=== PATIENT | male | born 1950 | race Caucasian/White ===

== ENCOUNTER 2020-01-02 10:54 | Outpatient (CLI) | payer MEDICARE, OTHER, SELFPAY ==
--- NOTE | ~2020-01-02 | XR_ITS ---
EXAMINATION: XR lg joint inject/asp w image DATE: 01/02/2020 11:40 INDICATION: Left hip arthritis. TECHNIQUE: A time-out was performed to verify the patient's name, date of , and procedure to b e performed. The procedure including the risks, benefits, and alternatives was discussed with the pat ient. Risks discussed included bleeding and infection. The patient understood the risks and agreed to proceed. The skin overlying the left hip joint was prepped and draped in usual sterile fashion. An esthetic was administered with 1% lidocaine subcutaneously. A 22 G needle was advanced under fluoros copic guidance into the joint. Injection of 1 mL of Omnipaque 240 confirmed intra-articular position of the needle. Subsequently, injectate consisting of 2 mL 0.5% bupivacaine and 1 mL 80 mg/mL Depo-M edrol was instilled. The needle was removed and the entry site was cleaned and dressed. There were no immediate complications. Fluoroscopy exposure time was 0.1 minutes. The total number of images was 2. FINDINGS: Real-time fluoroscopy demonstrates the needle in the left hip joint. Patient's pain prior t o procedure:5/10. Patient's pain following the procedure: 0/10. IMPRESSION: 1. Left hip joint injection of local anesthetic and steroid with decrease in the patient's presenting pain. Reviewed, dictated and finalized at location A. ME CHEMIST IMPRESSION: 1. Left hip joint injection of local anesthetic and steroid with decrease in th e patient's presenting pain.
== END 2020-01-02 10:55 | disposition home or self-care (01) ==
LOC: ANHIMG 11:06
PROVIDERS: Visit Provider Orthopaedic Surgery
DX: M16.12 Unilateral primary osteoarthritis, left hip (principal)
CPT/HCPCS: 20610; 77002; J1040; Q9966

== ENCOUNTER 2020-04-13 12:18 | Outpatient (CLI) | payer MEDICARE, OTHER, SELFPAY ==
--- NOTE | ~2020-04-13 | CT_ITS ---
EXAMINATION: CT lung screening EXAM DATE: 04/13/2020 12:36 INDICATION: Personal history of nicotine dependence. TECHNIQUE: Spiral low dose CT of the chest without contrast. Axial, coronal and sagittal images were reviewed. The dose-length product (DLP) for this examination was 116.10 mGy-cm. The exposure was t ailored according to patient size (auto mA exposure control), and iterative reconstruction (ASIR) was used as additional dose reduction technique. Comparison is made to prior examination from 04/10/2019. FINDINGS: The lungs are clear. Mild apical scarring. Mild emphysema and moderate hyperinflation. Tra cheobronchial tree is patent. There is no mediastinal, hilar or axillary lymphadenopathy. There a re no pleural or pericardial effusions. There is no pneumothorax. Heart normal in size. No evid ence of coronary arterial calcification. Upper abdomen is unremarkable. There is thoracic spondylos is without osteoblastic or osteolytic lesions identified. IMPRESSION: Lung-RADS category 1, negative (<1%chance of malignancy); recommend continued LDCT screen ing in 1 year. Reviewed, dictated and finalized at location A. IMPRESSION: Lung-RADS category 1, negative (<1%chance of malignancy); recommend continued LDCT screening in 1 year.
== END 2020-04-13 12:19 | disposition home or self-care (01) ==
LOC: CHSIMG 12:20
PROVIDERS: PCP Nurse Practitioner Family; Visit Provider Nurse Practitioner Family
DX: Z12.2 Encounter for screening for malignant neoplasm of respiratory organs (principal); Z87.891 Personal history of nicotine dependence
CPT/HCPCS: G0297

== ENCOUNTER 2020-11-09 11:37 | Outpatient (CLI) | payer MEDICARE, SELFPAY ==
[2020-11-09 11:50] LABS: Hematocrit 46.4 % (37.0-46.0); Hemoglobin 15.2 g/dL (12.4-15.3); Mean Corpuscular HGB Conc 32.8 g/dL (32.0-36.0); Mean Corpuscular Hemoglobin 31.7 pg (27.0-31.0); Mean Corpuscular Volume 96.7 fL (78.0-102.0); Mean Platelet Volume 10.5 fl (8.7-11.0); Platelet Count Result 233 K/mm3 (150-420); Red Cell Distribution Width 12.4 % (11.6-14.4); White Blood Count 5.6 K/mm3 (4.8-10.8)
[2020-11-09 13:03] LABS: Alanine Aminotransferase 19 U/L (16-63); Alkaline Phosphatase 103 U/L (46-116); Anion Gap 9 mmol/L (8-16); Aspartate Amino Transferase < 10 U/L (15-37); Bilirubin,Total 0.4 mg/dL (0.00-1.00); Blood Urea Nitrogen 19 mg/dL (7-18); Calcium 9.3 mg/dL (8.5-10.1); Carbon Dioxide 30 mmol/L (21-32); Chloride 102 mmol/L (98-108); Cholesterol 166 mg/dL (0-200); Estimated Glomerular Filt Rate > 60; Glucose 99 mg/dL (70-99); HDL Direct 53 mg/dL (40-60); LDL Cholesterol Calculated 101 mg/dL (<130); Osmolality Calculated 294 mOsm/kg (285-295); Potassium 4.4 mmol/L (3.5-5.1); Prostate Specific Antigen 4.8 ng/mL (< OR = 4.0); Sodium 141 mmol/L (136-145); Total Protein 7.4 g/dL (6.4-8.2); Triglycerides 59 mg/dL (0-150)
== END 2020-11-09 11:38 | disposition home or self-care (01) ==
LOC: CHSLAB 11:39
PROVIDERS: PCP Family Medicine; Visit Provider Nurse Practitioner Family
DX: Z13.6 Encounter for screening for cardiovascular disorders (principal); Z12.5 Encounter for screening for malignant neoplasm of prostate; I10 Essential (primary) hypertension
CPT/HCPCS: 36415; 80053; 80061; 84153; 85027; G0103

== ENCOUNTER 2021-07-13 07:43 | Outpatient (CLI) | payer MEDICARE, OTHER, SELFPAY ==
--- NOTE | ~2021-07-13 | CT_ITS ---
EXAMINATION: CT lung screening DATE: 07/13/2021 08:22 INDICATION: Personal history of tobacco dependence, prior smoker with 45 pack year history TECHNIQUE: Computed tomography (CT) of the chest was performed without intravenous contrast. The dose -length product (DLP) was 107.37 mGy-cm. 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 COMPARISON: 04/13/2020 FINDINGS: There is mild emphysema. No suspicious pulmonary nodules are identified. The lungs are free of acute opacities. There is no pleural effusion or pneumothorax. No pathologically enlarged thoraci c lymph nodes are identified. The heart size is normal. There is a 2 cm cyst of the left kidney. Ther e are compression fractures of T12 and L1 with slight interval worsening. IMPRESSION: 1. Lung-RADS category 1: Negative. Continue annual screening with noncontrast low-dose chest CT in 12 months. Reviewed, dictated and finalized at location B. IMPRESSION: 1. Lung-RADS category 1: Negative. Continue annual screening with noncontrast l ow-dose chest CT in 12 months.
== END 2021-07-13 07:44 | disposition home or self-care (01) ==
LOC: CHSIMG 07:45
PROVIDERS: PCP Family Medicine; Visit Provider Family Medicine
DX: Z12.2 Encounter for screening for malignant neoplasm of respiratory organs (principal); Z87.891 Personal history of nicotine dependence
CPT/HCPCS: 71271

== ENCOUNTER 2022-01-29 15:57 | Emergency (ER) | payer MEDICARE, OTHER, SELFPAY ==
--- NOTE | ~2022-01-29 | CT_ITS ---
EXAMINATION: CTA chest PE protocol EXAM DATE: 01/29/2022 18:16 INDICATION: Chest pain with SOB. TECHNIQUE: Spiral CTA of the chest (pulmonary arteries) was performed with 100 cc Omnipaque 350 intr avenous contrast injection. Images were acquired during the pulmonary arterial phase. Coronal maxi mum intensity projection 3D-reconstructions were created by the technologist on dedicated workstation . Axial, coronal and sagittal reformatted images were reviewed. The dose-length product (DLP) for t his examination was 456.44 mGy-cm. The exposure was tailored according to patient size (auto mA exp osure control), and iterative reconstruction (ASIR) was used as additional dose reduction technique. Comparison is made to prior examination from 07/07/2021. FINDINGS: Pulmonary arteries are well opacified and without intraluminal filling defects. No thora cic aortic dissection. The lungs are clear. There are no pleural or pericardial effusions. There is a small amount of opacity in the trachea probably debris. There is no mediastinal, hilar or axil devan lymphadenopathy. There is no pneumothorax. Heart normal in size. There is minimal coronary arterial calcification, arterial sclerosis. Upper abdomen is unremarkable. Minimal chronic compre ssion fractures of T2 and T12. IMPRESSION: No pulmonary emboli or acute cardiopulmonary findings. Reviewed, dictated and finalized at location G.
--- NOTE | ~2022-01-29 | XR_ITS ---
EXAMINATION: XR chest 1V portable EXAM DATE: 01/29/2022 16:23 INDICATION: Mid to left-sided chest pain. TECHNIQUE: Portable AP frontal chest x-ray was obtained. Comparison is made to prior examination from 05/05/2013. FINDINGS: The lungs are clear. There are no pleural effusions. The cardiomediastinal silhouette is within normal limits. There is no pneumothorax suspected. The bones and soft tissues are unremarkab le. IMPRESSION: Unremarkable chest x-ray exam. Reviewed, dictated and finalized at location G.
[2022-01-29 16:05] VITALS: BP 169/78; PULSE 60; RESP 20; TEMP 35.8; O2SAT 99
--- NOTE | 2022-01-29 16:07 | ED.DIZZY ---
HPI - Dizziness General Stated Complaint: chest heaviness Time Seen by Provider: 01/29/22 16:08 Related Data Home Medications Medication Instructions Recorded Confirmed No Home Medications 03/08/21 03/08/21 Allergies Allergy/AdvReac Type Severity Reaction Status Date / Time diclofenac Allergy Intermediate Hives Verified 12/28/21 07:39 Sulfonamides Allergy Intermediate Unknown Uncoded 03/08/21 08:05 PMFSH Past Medical History Medical History Centrilobular emphysema (07/23/18) Degenerative disc disease (07/17/18) Elevated blood pressure reading in office without diagnosis of hypertension High prostate specific antigen (PSA) (01/16/18) Need for 23-polyvalent pneumococcal polysaccharide vaccine Surgical History Surgical History Hx of tonsillectomy Normal colonoscopy 08/16/2018 Family History Family History Mother Family history of type 2 diabetes mellitus Social History Social History Smoking packs per day: 1 Smoking cigarettes per day: 20.0 Years smoked: 50 Smoking pack-years: 50.00 Tobacco type: cigarettes Smoking end date: 09/30/19 Alcohol intake: current Alcohol use details: occasional Substance use: current Substance use type: marijuana Additional living arrangements comments: Lives with . 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
--- NOTE | 2022-01-29 16:08 | ED.CHESTPAIN ---
HPI - Chest Pain General Chief Complaint: Chest Pain Stated Complaint: chest heaviness Time Seen by Provider: 01/29/22 16:08 Source: patient History of Present Illness HPI narrative: 71-year-old male ex-smoker, with a history of hypertension, hepatitis-C, COPD/emphysema, arthritis status post back surgery, colonic polyps presents to the ER with -- substernal chest pain which started at 10:00 a.m. Pain started at rest. No radiation of the pain. Patient has nausea but no vomiting. No shortness of breath. Currently pain is negligible. No history of cardiac stress test or cardiac catheterization. No prior cardiac intervention. COVID positive in July of last year. MD complaint: chest pain Onset (ago): hour(s) ( Started 6 hours ago) Timing of current episode: episodic Prior episodes: No Onset: during rest Pain location: substernal Pain radiation: none Pain scale (0-10): 8 Quality: aching Relieving factors: nothing Exacerbating factors: nothing Associated symptoms: nausea Treatment prior to arrival: none Risk Factors Coronary artery disease risk factors: smoking history and hypertension Thoracic aortic dissection risk factors: longstanding hypertension Related Data Home Medications Medication Instructions Recorded Confirmed No Home Medications 03/08/21 01/29/22 Allergies Allergy/AdvReac Type Severity Reaction Status Date / Time diclofenac Allergy Intermediate Hives Verified 12/28/21 07:39 Sulfonamides Allergy Intermediate Unknown Uncoded 03/08/21 08:05 Review of Systems Review of Systems: All systems reviewed & are unremarkable except as noted in HPI and below Constitutional: Constitutional: Reports as per HPI and Reports no additional constitutional complaints Eyes: Eyes: Reports as per HPI and Reports no additional eye complaints ENT: Reports system reviewed and no additional complaints, except as documented and Reports as per HPI Cardiovascular: Cardiovascular: Reports as per HPI, Reports no additional cardiovascular complaints and Reports chest pain Respiratory: Respiratory: Reports as per HPI and Reports no additional respiratory complaints Gastrointestinal: Gastrointestinal: Reports as per HPI and Reports no additional gastrointestinal complaints Genitourinary: Genitourinary: Reports no additional male genitourinary complaints and Reports as per HPI Musculoskeletal: Musculoskeletal: Reports no additional musculoskeletal complaints and Reports as per HPI Integumentary/Breasts: Skin/Breast: Reports system reviewed and no additional complaints, except as docu and Reports as per HPI Neurologic: Reports system reviewed and no additional complaints, except as documented and Reports as per HPI Psychiatric: Psychiatric: Reports no additional psychiatric complaints and Reports as per HPI Endocrine: Endocrine: Reports no additional endocrine complaints and Reports as per HPI Hematologic/Lymphatic: Hematologic/Lymphatic: Reports no additional hematologic/lymphatic complaints and Reports as per HPI Allergic/Immunologic: Allergic/Immunologic: Reports no additional allergic/immunologic complaints [facility] Past Medical History Medical History Centrilobular emphysema (07/23/18) Degenerative disc disease (07/17/18) Elevated blood pressure reading in office without diagnosis of hypertension High prostate specific antigen (PSA) (01/16/18) Need for 23-polyvalent pneumococcal polysaccharide vaccine Surgical History Surgical History Hx of tonsillectomy Normal colonoscopy 08/16/2018 Family History Family History Mother Family history of type 2 diabetes mellitus Social History Social History Smoking packs per day: 1 Smoking cigarettes per day: 20.0 Years smoked: 50 Smoking pack-years
--- NOTE | 2022-01-29 16:10 | ECG_ITS ---
Measurements Intervals [place] Rate: 56 P: 2 MD: 181 QRS: 61 QRSD: 88 T: 68 QT: 447 QTc: 433 Interpretive Statements SINUS BRADYCARDIA OTHERWISE UNREMARKABLE ECG NO PREVIOUS ECG AVAILABLE FOR COMPARISON Electronically Signed On 01-30-2022 8:38:53 CDT by Andrea Ferrari M.D.
[2022-01-29] MEDS: CLOPIDOGREL BISULFATE 75 MG TABLET PO (16:19)
[2022-01-29 16:26] LABS: Basophils Absolute Auto 0.03 K/mm3 (0.00-0.10); Basophils Percent Auto 0.2 % (0.0-1.0); Eosinophils Absolute Auto 0.05 K/mm3 (0.02-0.50); Eosinophils Percent Auto 0.4 % (1.0-6.0); Hematocrit 46.1 % (37.0-46.0); Hemoglobin 15.4 g/dL (12.4-15.3); Immature Granulocyte Absolute 0.04 K/mm3 (0.00-0.00); Immature Granulocyte Percent A 0.3 % (0.0-0.0); Lymphocytes Absolute Auto 1.25 K/mm3 (1.10-4.50); Lymphocytes Percent Auto 9.9 % (18.0-42.0); Mean Corpuscular HGB Conc 33.4 g/dL (32.0-36.0); Mean Corpuscular Hemoglobin 32.1 pg (27.0-31.0); Mean Platelet Volume 11.6 fl (8.7-11.0); Monocytes Absolute Auto 0.87 K/mm3 (0.10-0.90); Monocytes Percent Auto 6.9 % (2.0-11.0); Neutrophils Absolute Auto 10.3 K/mm3 (1.7-7.2); Neutrophils Percent Auto 82.3 % (50.0-70.0); Platelet Count Result 200 K/mm3 (150-420); Red Cell Distribution Width 13.2 % (11.6-14.4); White Blood Count 12.6 K/mm3 (4.8-10.8)
[2022-01-29 16:39] LABS: Partial Thromboplastin Time 32.8 SEC (23.90-30.70)
[2022-01-29 16:41] LABS: D Dimer 0.55 mg/L (0.19-0.50)
[2022-01-29 16:42] LABS: Lactic Acid Reflex 1.2 mmol/L (0.4-2.0)
[2022-01-29 16:52] LABS: Add Urine Microscopic? YES; Appearance Urine Clear (Clear); Bilirubin Urine Negative (Negative); Blood Urine Negative (Negative); Color Urine Yellow (Yellow); Glucose Urine UA Negative (Negative); Ketones Urine 1+ (Negative); Leukocyte Esterase Ur Negative (Negative); Nitrate Urine Negative (Negative); Protein Urine Trace (Negative); Specific Grav Ur >= 1.030 (1.010-1.020); Urobilinogen Urine 0.2 mg/dL (0.2-1.0)
[2022-01-29 16:52] LABS: Alanine Aminotransferase 17 U/L (16-63); Albumin Level 4.4 g/dL (3.4-5.0); Alkaline Phosphatase 102 U/L (46-116); Anion Gap 10 mmol/L (8-16); Aspartate Amino Transferase 13 U/L (15-37); Bilirubin,Total 0.9 mg/dL (0.00-1.00); Blood Urea Nitrogen 19 mg/dL (7-18); Carbon Dioxide 28 mmol/L (21-32); Chloride 101 mmol/L (98-108); Estimated CRCL calculation 76 ml/min; Estimated Glomerular Filt Rate > 60; Glucose 118 mg/dL (70-99); Lipase 111 U/L (73-393); NT Pro B Type Natriuretic Pept 157 pg/mL (0-125); Osmolality Calculated 291 mOsm/kg (285-295); Sodium 139 mmol/L (136-145); Troponin I 8.9 ng/L (0.00-60.4)
[2022-01-29 16:55] LABS: Bacteria Urine Trace /hpf; Other Sediment Urine Spermatazoa /hpf; RBC Urine None seen /hpf (0-2); Squamous Epithelial Cell Urine Rare /hpf (Few); WBC Urine None seen /hpf (0-3)
[2022-01-29 17:27] VITALS: BP 136/68; PULSE 66; RESP 20; O2SAT 98
[2022-01-29] MEDS: SODIUM CHLORIDE 0.9% IV 500 ML 999 ML IV CONT (17:53)
[2022-01-29 19:04] VITALS: BP 175/84; PULSE 84; RESP 20; TEMP 36.4; O2SAT 97
== END 2022-01-29 19:10 | disposition home or self-care (01) ==
PROVIDERS: Emergency Provider Internal Medicine Critical Care Medicine; PCP Family Medicine
DX: R07.9 Chest pain, unspecified (principal); F17.200 Nicotine dependence, unspecified, uncomplicated
CPT/HCPCS: 36415; 71045; 71275; 80053; 81001; 83605; 83690; 83880; 84484; 85025; 85380; 85610; 85730; 93005; 96360; 99284; A9270; J7040; Q9967

== ENCOUNTER 2022-01-30 15:29 | Inpatient (IN) | payer MEDICARE, OTHER, SELFPAY ==
--- NOTE | ~2022-01-30 | XR_ITS ---
EXAMINATION: XR abdomen/kub 1V DATE: 02/02/2022 10:44 INDICATION: Abdominal distention. Constipation. TECHNIQUE: A supine view of the abdomen was obtained. COMPARISON: CT dated 01/30/2022 FINDINGS: Postoperative changes consistent with recent appendectomy with several new surgical clips consistent with associated adjacent wall thickening at the tip the cecum. Right lower quadrant surgical drain. M ultiple gas-filled but not frankly dilated loops of small bowel and favor ileus over obstruction. Sma ll amount of stool in the descending colon. Anterior spinal fusion with interbody bone graft cages be tween L5 and partially lumbarized S1 segment. IMPRESSION: 1. Postoperative ileus following likely appendectomy. Reviewed, dictated and finalized at location A.
--- NOTE | ~2022-01-30 | CT_ITS ---
EXAMINATION: CT abdomen pelvis w con EXAM DATE: 01/30/2022 16:27 INDICATION: RLQ pain . Chest pain. High PSA. Nausea. TECHNIQUE: Spiral CT of the abdomen and pelvis was performed following intravenous injection of 100 m L Omnipaque 350. Axial, coronal and sagittal images of the abdomen and pelvis were reviewed. The do se-length product (DLP) for this examination was 366.03 mGy-cm. The exposure was tailored according to patient size (auto mA exposure control), and iterative reconstruction (ASIR) was used as additiona l dose reduction technique. There is no prior study for comparison. FINDINGS: There is large appendicolith. Appendix is severely dilated at 1.8 cm and there is perforati on demonstrated, indicated on axial image 121. No abscess or gross free intraperitoneal air. There is extensive adjacent inflammation. The liver, spleen, adrenal glands and pancreas are unremarkable. Gallbladder is unremarkable. No bi liary obstruction. Portal and splenic veins are patent. Kidneys enhance symmetrically. There is no hydronephrosis. There is right renal 2 cm cyst. There is mild prostatomegaly. The bladder is unrema rkable. There is no retroperitoneal or pelvic lymphadenopathy. There is moderate scattered arterio sclerotic disease. There is mild sigmoid colonic diverticulosis. There is no adjacent inflammatory change to suggest di verticulitis. The stomach and small bowel are unremarkable. There is expected amount of colonic stoo l. No free intraperitoneal gas. The heart is normal in size. There are no pericardial or pleural effusions. The lung bases are unremarkable. There are no osteoblastic or osteolytic lesions identi fied. Chronic mild to moderate compression fractures at T10-T12, and L3. There are mild chronic compr ession fractures of L4 and L5. Interbody devices at L4-5. There are no osteoblastic or osteolytic les ions identified. Chronic bilateral L4 spondylolysis and on the right at L5. IMPRESSION: Acute perforated appendicitis. No abscess. I discussed impression with Pantera Horne MD at 01/30/2022 16:38 CDT. Reviewed, dictated and finalized at location G.
--- NOTE | ~2022-01-30 | XR_ITS ---
EXAMINATION: XR abdomen/kub 1V DATE: 02/04/2022 05:58 INDICATION: Postoperative ileus following colonoscopic appendectomy TECHNIQUE: A supine view of the abdomen on 2 radiographs was obtained. COMPARISON: 02/03/2022 and 02/02/2022 FINDINGS: Nasogastric tube tip in the likely decompressed body of the stomach. There are multiple loops of mild ly dilated gas-filled loops of small bowel which are without significant interval change since 2. Surgical drain and some surgical clips in the right lower quadrant likely related to reported rece nt appendectomy. Lung bases are clear. L5-S1 anterior spinal fusion with interbody bone graft cages. IMPRESSION: 1. Stable appearance of multiple mildly dilated gas-filled loops of bowel throughout the abdomen and pelvis consistent with postoperative ileus length to recent appendectomy. Reviewed, dictated and finalized at location A. IMPRESSION: 1. Stable appearance of multiple mildly dilated gas-filled loops of bowel throu ghout the abdomen and pelvis consistent with postoperative ileus length to rece nt appendectomy.
--- NOTE | ~2022-01-30 | XR_ITS ---
XR abdomen NG/feed tube insert DATE: 02/03/2022 16:59 INDICATION: NG tube placement TECHNIQUE: Portable AP view on 02/03/2022 at 1649 hours COMPARISON: 02/02/2022 KUB FINDINGS: There is introduction of a nasogastric tube, the proximal side-port approximately 4 cm or g reater distal to the diaphragmatic hiatus, the distal tip situated in the gastric fundus. Gaseous small an enlarged bowel distention is again noted. IMPRESSION: NG tube in gastric fundus Reviewed, dictated and finalized at Location A. Reviewed, dictated and finalized at location A. IMPRESSION: NG tube in gastric fundus
[2022-01-30 15:33] VITALS: BP 127/85; PULSE 105; RESP 16; TEMP 37.3; O2SAT 99
--- NOTE | 2022-01-30 15:40 | PC.NURSE ---
pt c/o onset of rlq pain last night. also noting decreased po intake.
--- NOTE | 2022-01-30 16:13 | ED.ABDPAIN ---
HPI - Abdominal Pain General Chief Complaint: Abdominal Pain Stated Complaint: Right lower abd pain Time Seen by Provider: 01/30/22 15:39 Source: patient, family and RN notes reviewed History of Present Illness HPI narrative: 71-year-old male presenting to the emergency department for evaluation of right lower quadrant pain. Patient was having some chest pain yesterday and was worked up at an outside hospital. Patient states after getting home his chest pain became lower and became more localized at his right lower quadrant. Patient denies associated nausea or vomiting. Patient denies any prior history of appendectomy. Related Data Home Medications Medication Instructions Recorded Confirmed No Home Medications 03/08/21 01/30/22 Allergies Allergy/AdvReac Type Severity Reaction Status Date / Time diclofenac Allergy Intermediate Hives Verified 01/30/22 15:39 Sulfonamides Allergy Intermediate Unknown Uncoded 03/08/21 08:05 Review of Systems Review of Systems: CONSTITUTIONAL: Denies fever, chills, or sweats. EYES: Denies visual changes, redness, or discharge. ENT: Denies rhinorrhea, congestion, sore throat, or otalgia. CARDIOVASCULAR: Denies chest pain, palpitations, or edema. RESPIRATORY: Denies cough or dyspnea. GASTROINTESTINAL: Right lower quadrant pain GENITOURINARY: Denies dysuria or hematuria. SKIN: Denies rash or itching. MUSCULOSKELETAL: Denies back pain, joint pain, or myalgia. NEUROLOGIC: Denies headache, numbness, or weakness. [facility] Past Medical History Medical History Centrilobular emphysema (07/23/18) Degenerative disc disease (07/17/18) Elevated blood pressure reading in office without diagnosis of hypertension High prostate specific antigen (PSA) (01/16/18) Need for 23-polyvalent pneumococcal polysaccharide vaccine Surgical History Surgical History Hx of tonsillectomy Normal colonoscopy 08/16/2018 Family History Family History Mother Family history of type 2 diabetes mellitus Social History Social History Smoking packs per day: 1 Smoking cigarettes per day: 20.0 Years smoked: 50 Smoking pack-years: 50.00 Tobacco type: cigarettes Smoking end date: 09/30/19 Alcohol intake: current Alcohol use details: occasional Substance use: current Substance use type: marijuana Additional living arrangements comments: Lives with . 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 HEAD: normocephalic, atraumatic. EYES: PERRLA/EOMI, conjunctivae clear. NECK: Supple. No adenopathy, no masses. RESPIRATORY: Airway patent, respirations nonlabored. Clear to auscultation bilaterally, no rales, rhonchi, wheezing. CARDIOVASCULAR: Regular rate and rhythm without murmurs rubs or gallops. ABDOMINAL: Normal bowel sounds. Right lower quadrant tenderness with guarding and rebound. Positive Rovsing MUSCULOSKELETAL: Moves all extremities. Strength/ROM intact, No edema, No calf tenderness. NEURO: Alert. Cranial nerves II through XII intact. At neuro baseline SKIN: Warm, dry. Normal Color Course Course Emergency Course: Patient denies any prior history of PR or CVA. Patient denies history of high cholesterol hypertension or diabetes. Case was discussed with Dr. Stewart. Patient was made n.p.o. and started on Zosyn. Surgery agreed to admit the patient primarily. Vital Signs Vital signs: Vital Signs Temperature 99.1 F 01/30/22 15:33 Pulse Rate 105 H 01/30/22 15:33 Respiratory Rate 16 01/30/22 15:33 Blood Pressure 127/85 01/30/22
[2022-01-30 16:18] LABS: Estimated CRCL calculation 105 ml/min; Estimated Glomerular Filt Rate > 60
[2022-01-30 16:39] LABS: Basophils Absolute Auto 0.1 K/mm3 (0.0-0.1); Basophils Percent Auto 0.3 % (0.2-1.2); Eosinophils Percent Auto 0.1 % (0-4.4); Hematocrit 45.5 % (42.0-52.0); Hemoglobin 15.1 g/dL (14.0-18.0); Immature Granulocyte Absolute 0.09 K/mm3 (0.00-0.031); Immature Granulocyte Percent A 0.5 % (0-0.5); Lymphocytes Absolute Auto 1.29 K/mm3 (0.9-3.2); Lymphocytes Percent Auto 7.4 % (18.3-44.2); Mean Corpuscular HGB Conc 33.2 g/dl (32-36); Mean Corpuscular Hemoglobin 31.9 pg (26-34); Mean Corpuscular Volume 96.2 fl (80-100); Mean Platelet Volume 11.3 fl (7.4-10.4); Monocytes Absolute Auto 1.6 K/mm3 (0.1-0.6); Neutrophils Absolute Auto 14.5 K/mm3 (1.3-6.7); Neutrophils Percent Auto 82.7 % (45.5-73.1); Platelet Count Result 206 k/mm3 (150-375); Red Blood Count 4.73 M/mm3 (4.6-6.20); Red Cell Distribution Width 13.4 % (11.5-14.5); White Blood Count 17.5 K/mm3 (4.5-10.0)
[2022-01-30 16:45] LABS: Add Urine Microscopic? YES; Appearance Urine Clear (Clear); Bilirubin Urine Negative (Negative); Blood Urine Negative (Negative); Color Urine Amber (Yellow); Glucose Urine UA Negative (Negative); Ketones Urine 1+ mg/dL (Negative); Leukocyte Esterase Ur Negative LEU/UL (Negative); Mucus Urine Rare /lpf; Nitrate Urine Negative (Negative); Protein Urine 1+ mg/dL (Negative); Squamous Epithelial Cell Urine Rare /hpf (Few); Urobilinogen Urine Negative mg/dL (<2.0); WBC Urine 0-3 /hpf
[2022-01-30] MEDS: HYDROmorphone HCL INJ (*CRX) 1 MG/ML SYR 0.5 MG IV PUSH ×2 (16:46→19:49)
[2022-01-30 16:50] LABS: Specific Grav Ur 1.034 (1.001-1.035)
[2022-01-30 16:51] LABS: Lactic Acid Reflex 1.8 mmol/L (0.7-2.1)
[2022-01-30 16:53] LABS: Alanine Aminotransferase 15 U/L (4-50); Albumin Level 4.7 g/dL (3.5-5.1); Alkaline Phosphatase 109 U/L (38-126); Anion Gap 10 mmol/L (8-16); Aspartate Amino Transferase 22 U/L (17-59); Bilirubin,Total 1.7 mg/dL (0.2-1.3); Blood Urea Nitrogen 18 mg/dL (9-20); Calcium 9.2 mg/dL (8.4-10.2); Carbon Dioxide 28 mmol/L (22-30); Chloride 102 mmol/L (98-107); Estimated CRCL calculation 73 ml/min; Estimated Glomerular Filt Rate > 60; Glucose 143 mg/dL (65-110); Lipase 65 U/L (23-300); Sodium 140 mmol/L (137-145)
[2022-01-30 16:56] LABS: Potassium 3.7 mmol/L (3.4-5.0)
--- NOTE | 2022-01-30 19:35 | ADMGEN ---
This patient, Michael Chawla, was admitted to Medical Room 250-01. Patient/family oriented to hospital policies and general routines including ID bracelet, bed and alarms, visiting hours, pain management, procedures, bathroom and other care routines, personal items, smoking policy, room service/diet, and visiting hours. Information on how to activate the Rapid Response Team has been discussed. Patient/Family are encouraged to report perceived risks to care and to ask questions if they do not understand what they are told or what they should do.
[2022-01-30] MEDS: SODIUM CHLORIDE 0.9% IV 1,000 ML 125 ML IV CONT (19:54)
[2022-01-30 20:00] VITALS: BMI 22.8
[2022-01-30 22:00] VITALS: BP 154/83; PULSE 92; RESP 18; TEMP 37.1; O2SAT 96
[2022-01-30 22:36] VITALS: O2SAT 97
[2022-01-31] VITALS (16 sets, daily range): BP systolic 111–153; BP diastolic 62–89; PULSE 95–110; RESP 16–29; TEMP 36.4–37.2; O2SAT 91–100
[2022-01-31] MEDS: HYDROmorphone HCL INJ (*CRX) 1 MG/ML SYR 0.5 MG IV PUSH ×3 (00:01→09:57)
[2022-01-31] MEDS: SODIUM CHLORIDE 0.9% IV 1,000 ML 125 ML IV CONT ×2 (03:55→11:38)
[2022-01-31 05:44] LABS: Hematocrit 42.2 % (42.0-52.0); Hemoglobin 14.4 g/dL (14.0-18.0); Mean Corpuscular HGB Conc 34.1 g/dl (32-36); Mean Corpuscular Hemoglobin 31.4 pg (26-34); Mean Corpuscular Volume 91.9 fl (80-100); Mean Platelet Volume 10.9 fl (7.4-10.4); Platelet Count Result 176 k/mm3 (150-375); Red Blood Count 4.59 M/mm3 (4.6-6.20); Red Cell Distribution Width 13.4 % (11.5-14.5)
[2022-01-31 05:51] LABS: Chloride 106 mmol/L (98-107)
[2022-01-31 05:53] LABS: INR 1.4; Prothrombin Time 16.3 Seconds (11.1-14.7)
[2022-01-31 06:01] LABS: Anion Gap 9 mmol/L (8-16); Blood Urea Nitrogen 18 mg/dL (9-20); Calcium 8.5 mg/dL (8.4-10.2); Carbon Dioxide 24 mmol/L (22-30); Estimated CRCL calculation 71 ml/min; Estimated Glomerular Filt Rate > 60; Glucose 121 mg/dL (65-110); Potassium 3.9 mmol/L (3.4-5.0); Sodium 139 mmol/L (137-145)
[2022-01-31 08:43] LABS: Glucose Point of Care 133 mg/dl (65-105)
--- NOTE | 2022-01-31 15:04 | WPDHPUPDATE1 ---
History and Physical Update Update Date/Time: 01/31/22 15:04 History and Physical has been reviewed, including an updated exam of the patient. There are NO changes in the patient's condition. Risks, benefits, and alternatives have been discussed and questions answered. Patient agrees to proceed with procedure.
--- NOTE | 2022-01-31 15:31 | PC.NURSE ---
To OR per rachele, IV 20 RFA. Report given to Mary Jane STYLES.
[2022-01-31] MEDS: LACTATED RINGERS 1,000 ML 30 ML IV CONT ×2 (15:45→17:57)
--- NOTE | 2022-01-31 16:24 | WPDANESEPPF ---
Anes - Initial Pre Proc Eval Procedure: Operation Date: 01/31/22 17:00 Proposed Procedures p Laparoscopic Appendectomy - Temo Stewart DO Date/Time: 01/31/22 16:24 Surgeon: Temo Stewart DO Pre Op Diagnosis: Acute Appendicitis with Perforation Patient Data Age: 71 Gender: M Height: 1.83 m Weight: 76.5 kg Last Vital Signs Temp 37.2 C 01/31/22 16:05 Pulse 95 01/31/22 16:05 Resp 18 01/31/22 16:05 BP 147/72 H 01/31/22 16:05 Pulse Ox 100 01/31/22 16:05 Allergies Allergy/AdvReac Type Severity Reaction Status Date / Time diclofenac Allergy Intermediate Hives Verified 01/31/22 16:00 Sulfonamides Allergy Intermediate Unknown Uncoded 01/31/22 16:00 Home Medications Medication Instructions Recorded Confirmed Type No Home Medications 03/08/21 01/30/22 History Laboratory Tests 01/30/22 01/30/22 01/30/22 15:52 15:52 15:52 WBC 17.5 K/mm3 H K/mm3 (4.5-10.0) RBC 4.73 M/mm3 M/mm3 (4.6-6.20) Hgb 15.1 g/dL g/dL (14.0-18.0) Hct 45.5 % % (42.0-52.0) MCV 96.2 fl fl (80-100) MCH 31.9 pg pg (26-34) MCHC 33.2 g/dl g/dl (32-36) RDW 13.4 % % (11.5-14.5) Plt Count 206 k/mm3 k/mm3 (150-375) MPV 11.3 fl H fl (7.4-10.4) Immature Gran % (Auto) 0.5 % % (0-0.5) Neut % (Auto) 82.7 % H % (45.5-73.1) Lymph % (Auto) 7.4 % L % (18.3-44.2) [place] % (Auto) 9.0 % H % (2.6-8.5) Eos % (Auto) 0.1 % % (0-4.4) Baso % (Auto) 0.3 % % (0.2-1.2) Lymph # (Auto) 1.29 K/mm3 K/mm3 (0.9-3.2) [place] # (Auto) 1.6 K/mm3 H K/mm3 (0.1-0.6) Eos # (Auto) 0.0 K/mm3 K/mm3 (0-0.3) Baso # (Auto) 0.1 K/mm3 K/mm3 (0.0-0.1) Abs Immat Gran (auto) 0.09 K/mm3 H K/mm3 (0.00-0.031) Absolute Neuts (auto) 14.5 K/mm3 H K/mm3 (1.3-6.7) Absolute Nucleated RBC 0.0 K/mm3 K/mm3 (0.0-0.012) Nucleated RBC % 0.0 % % (0.0-0.2) PT INR Sodium 140 mmol/L mmol/L (137-145) Potassium 3.7 mmol/L mmol/L (3.4-5.0) Chloride 102 mmol/L mmol/L (98-107) Carbon Dioxide 28 mmol/L mmol/L (22-30) Anion Gap 10 mmol/L mmol/L (8-16) BUN 18 mg/dL mg/dL (9-20) Creatinine 0.90 mg/dL mg/dL (0.7-1.3) Estim Creat Clear Calc 73 ml/min ml/min Estimated GFR > 60 (59 - ) Glucose 143 mg/dL H mg/dL (65-110) POC Capillary Glucose Lactic Acid Calcium 9.2 mg/dL mg/dL (8.4-10.2) Total Bilirubin 1.7 mg/dL H mg/dL (0.2-1.3) AST 22 U/L U/L (17-59) ALT 15 U/L U/L (4-50) Alkaline Phosphatase 109 U/L U/L (38-126) Total Protein 8.0 g/dL g/dL (6.3-8.2) Albumin 4.7 g/dL g/dL (3.5-5.1) Lipase 65 U/L U/L (23-300) Urine Color [place] (Yellow) Urine Appearance Clear (Clear) Urine pH 5.0 (5.0-9.0) Ur Specific Gunter 1.034 (1.001-1.035) Urine Protein 1+ mg/dL H mg/dL (Negative) Urine Glucose (UA) Negative mg/dL mg/dL (Negative) Urine Ketones 1+ mg/dL H mg/dL (Negative) Ur Blood (Man) Negative (Negative) Urine Nitrate Negative (Negative) Urine Bilirubin Negative (Negative) Urine Urobilinogen Negative mg/dL mg/dL (<2.0) Leukocyte Esterase Rfl Negative KIERRA/UL KIERRA/UL (Negative) Urine RBC 3-5 /hpf H /hpf (0-2) Urine WBC 0-3 /hpf /hpf Ur Squamous Epith Cells Rare /hpf /hpf (Few) Urine Mucus Rare /lpf /lpf 01/30/22 01/31/22 01/31/22 15:52 05:35 05:35 WBC 16.0 K/mm3 H K/mm3 (4.5-10.0) RBC 4.59 M/mm3 L M/mm3 (4.6-6.20) Hgb 14.4 g/dL g/dL (14.
--- NOTE | 2022-01-31 16:26 | PM.IMHP ---
H&P: HPI History of Present Illness Date/Time: 01/31/22 16:26 Chief Complaint: Right lower quadrant pain Narrative: This is a 71-year-old man who presents with right lower quadrant pain that started 2 days ago. He presented to the emergency department in [place] but was mainly worked up for cardiac issues and was discharged home. He continued to have right lower quadrant pain and decided yesterday to come to [facility] emergency department. CT of his abdomen and pelvis showed evidence of acute perforated appendicitis. He was admitted for further treatment. He continues to have right lower quadrant pain and is requiring IV pain meds fairly regularly. He denies any fevers or chills. He denies any change in bowel habits. He has never had any symptoms like this before. Review of Systems Review of Systems: All systems reviewed & are unremarkable except as noted in HPI and below Constitutional: Constitutional: Denies chills and Denies fever(s) Eyes: Eyes: Denies change in vision ENT: Denies hearing loss, Denies neck pain and Denies sore throat Cardiovascular: Cardiovascular: Denies chest pain and Denies dyspnea Respiratory: Respiratory: Denies cough, Denies dyspnea and Denies wheezing Gastrointestinal: Gastrointestinal: Reports as per HPI Genitourinary: Genitourinary: Denies hematuria and Denies dysuria Musculoskeletal: Musculoskeletal: Denies arthralgias, Denies joint swelling and Denies neck pain Allergic/Immunologic: Allergic/Immunologic: Denies wheezing [facility] Past Medical History Medical History (Updated 01/31/22 @ 16:31 by Temo Stewart DO) Centrilobular emphysema (07/23/18) Degenerative disc disease (07/17/18) Elevated blood pressure reading in office without diagnosis of hypertension High prostate specific antigen (PSA) (01/16/18) Hx of hepatitis C Need for 23-polyvalent pneumococcal polysaccharide vaccine Surgical History Surgical History Hx of tonsillectomy Normal colonoscopy 08/16/2018 Family History Family History Mother No problems noted. Other Family history of type 2 diabetes mellitus Social History Social History Smoking packs per day: 1 Smoking cigarettes per day: 20.0 Years smoked: 15 Smoking pack-years: 15.00 Smoking status: Former smoker Tobacco type: cigarettes Smoking end date: 09/30/19 Alcohol intake: never Alcohol use details: occasional Substance use: current Substance use type: marijuana Additional living arrangements comments: Lives with . 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 Gender identity (if verbalized by the patient): Male Sexual Orientation (if Verbalized by the Patient): Straight or Heterosexual Spiritual care concerns: No Meds Home Medications and Allergies Home Medications Medication Instructions Recorded Confirmed Type No Home Medications 03/08/21 01/30/22 History Allergies Allergy/AdvReac Type Severity Reaction Status Date / Time diclofenac Allergy Intermediate Hives Verified 01/31/22 16:00 Sulfonamides Allergy Intermediate Unknown Uncoded 01/31/22 16:00 Vital Signs Vital Signs - 24 hr 01/30/22 22:00 01/30/22 22:36 01/31/22 06:00 Temperature 37.1 C 37.1 C Pulse Rate 92 105 H Respiratory Rate 18 16 Blood Pressure 154/83 H 140/75 Pulse Oximetry 96 97 95 01/31/22 08:29 01/31/22 08:40 01/31/22 09:59 Temperature 36.7 C Pulse Rate Respiratory Rate Blood Pressure 146/71 H Pulse Oximetry 97 01/31/22 15:28 01/31/22 16:05 Temperature 36.6 C 37.2 C Pulse Rate 106 H 95 Respiratory Rate 18 18 Blood Pressure 146/87 H 147/72 H Pulse Oximetry 94 100 Exam Const: General: alert; No acute distress Orientation/consciousness: patient oriented x3 Limitations: no limitations
--- NOTE | 2022-01-31 17:48 | W.PM.PROC2 ---
Procedure Note - Detailed Date of Procedure 01/31/22 Pre-op Diagnosis Acute Appendicitis with Perforation Post-op Diagnosis Same Procedure Performed 1. Laparoscopic appendectomy 2. Laparoscopic drainage of intra-abdominal abscess Surgeon Temo Stewart, DO Anesthesia General and Local (0.5% bupivacaine with epinephrine) Indications This is a 71-year-old man who presented to the emergency department last night with abdominal pain that started 2 days ago. He was noted to have an elevated white blood count and CT of his abdomen and pelvis showed evidence of acute appendicitis with likely perforation. Patient was started on broad-spectrum IV antibiotics. This morning his pain was still fairly persistent and he was slightly tachycardic. Discussions were made with the patient about treatment options and decision was made to proceed with laparoscopic appendectomy, possible open. Findings Laparoscopic appendectomy was performed. The patient was found to have an abdominal abscess between the appendix and terminal ileum. The appendix appeared gangrenous and perforated. The base of the appendix appeared healthy and viable. The appendix was removed and sent to the lab for pathology. His abdomen was irrigated with 1 L of sterile saline and decision was made to place a 19 round George drain along the right lower quadrant and pelvis. No other significant abnormalities were noted. Description of Procedure Procedure as well as risks, benefits, and alternatives were explained to the patient. The patient agreed to proceed. Written consent was obtained and placed in chart prior to procedure. The patient was brought back to surgical suite. He was placed supine on operating table. Time-out was done to confirm the patient and procedure. The patient was then intubated by the Anesthesia Department. His abdomen was prepped and draped in sterile fashion using chlorhexidine prep. A 12 mm incision was made at the inferior portion of the umbilicus. Blunt dissection was carried out down to the linea alba. The linea alba was then incised using a 15 blade scalpel. Then bluntly entered into the peritoneal cavity. A 12 mm trocar was then inserted, and carbon dioxide insufflation was used to create a pneumoperitoneum. The camera was inserted and the abdomen was inspected. No immediate abnormalities were identified. The patient was then placed in slight Trendelenburg position and rotated to the left. A 5 mm incision was made in the suprapubic region in midline and a 5 mm trocar was inserted under direct visualization. A 5 mm incision was made in the left lower quadrant and a 5 mm trocar was inserted under direct visualization. The right lower quadrant was carefully inspected. The cecum was identified and then this was traced back to the appendix. The appendix was identified and grasped at the mesoappendix and lifted anteriorly. Careful blunt dissection was carried out at the base of the appendix through the mesoappendix using a [place] grasper. An Endo-ANGELICA 45 mm blue load stapler was then advanced across the base of the appendix and clamped and fired. A white reload was then clamped across the mesoappendix and fired. This freed up our appendix completely. It was then placed in an EndoCatch bag and removed through the umbilical port. The staple lines were then inspected. Hemostasis appeared adequate and the staple lines appeared secure. The area was then irrigated with sterile saline. The pelvis was then carefully inspected and irrigated with sterile saline as well and the remainder of the abdomen was carefully inspected. The patient was then flattened out in bed. One final inspection was made around the abdominal cavity and no other abnormalities were seen. The ports were then removed under direct visualization. The camera was removed and the pneumoperitoneum was released. The fascia of the umbilical incision was reapproximated using an 0 Vicryl [id number] sut
--- NOTE | 2022-01-31 18:54 | PC.NURSE ---
Returned from OR per stretcher. Report received from Alex .
[2022-02-01] VITALS (11 sets, daily range): BP systolic 117–166; BP diastolic 66–84; PULSE 73–94; RESP 18–20; TEMP 35.9–37.4; O2SAT 94–97
[2022-02-01 06:00] LABS: Hematocrit 39.2 % (42.0-52.0); Mean Corpuscular HGB Conc 33.2 g/dl (32-36); Mean Corpuscular Hemoglobin 31.6 pg (26-34); Mean Corpuscular Volume 95.1 fl (80-100); Mean Platelet Volume 11.4 fl (7.4-10.4); Platelet Count Result 160 k/mm3 (150-375); Red Blood Count 4.12 M/mm3 (4.6-6.20); Red Cell Distribution Width 13.6 % (11.5-14.5); White Blood Count 12.8 K/mm3 (4.5-10.0)
[2022-02-01 06:34] LABS: Anion Gap 6 mmol/L (8-16); Blood Urea Nitrogen 20 mg/dL (9-20); Calcium 8.2 mg/dL (8.4-10.2); Carbon Dioxide 26 mmol/L (22-30); Chloride 102 mmol/L (98-107); Estimated CRCL calculation 71 ml/min; Estimated Glomerular Filt Rate > 60; Glucose 132 mg/dL (65-110); Potassium 3.9 mmol/L (3.4-5.0); Sodium 134 mmol/L (137-145)
[2022-02-01] MEDS: polyethylene glycoL 3350 17 GM POWD.PACK PO (07:45)
[2022-02-01] MEDS: ENOXAPARIN 40 MG/0.4 ML SYRINGE SUB-Q (07:45)
--- NOTE | 2022-02-01 11:42 | WPDANESPN ---
Anes - Prog Note Post-Op Date/Time: 02/01/22 11:42 Cardiovascular status: normal Respiratory status: normal Airway patency: baseline Mental status: baseline Post-Op hydration status: normal Vital Signs: Last Vital Signs Temp 98.3 F 02/01/22 05:06 Pulse 79 02/01/22 05:06 Resp 18 02/01/22 05:06 BP 125/71 02/01/22 05:06 Pulse Ox 97 02/01/22 08:50 Pain Score (VAS): 4 I/O: Intake & Output 01/31/22 02/01/22 02/01/22 23:59 07:59 15:59 Intake Total 850 590 120 Output Total 180 515 Balance 670 75 120 Laboratory Tests 02/01/22 05:37 02/01/22 05:37 02/01/22 02/01/22 05:37 05:37 WBC 12.8 H RBC 4.12 L Hgb 13.0 L Hct 39.2 L MCV 95.1 MCH 31.6 MCHC 33.2 RDW 13.6 Plt Count 160 MPV 11.4 H Sodium 134 L Potassium 3.9 Chloride 102 Carbon Dioxide 26 Anion Gap 6 L BUN 20 Creatinine 0.90 Estim Creat Clear Calc 71 Estimated GFR > 60 Glucose 132 H Calcium 8.2 L Patient Feedback: Patient satisfied with anesthetic care.
--- NOTE | 2022-02-01 12:32 | PM.PNGS ---
Progress Note: A&P Assessment and Plan (1) Acute appendicitis with perforation and localized peritonitis: Qualifiers: Appendicitis abscess presence: without abscess Appendicitis gangrene presence: unspecified whether gangrene present Qualified Code(s): K35.32 - Acute appendicitis with perforation and localized peritonitis, without abscess Code(s): K35.32 - Acute appendicitis with perforation and localized peritonitis, without abscess Status: Acute Assessment and Plan: Advance to full liquids now and will ADAT. Continue IV Zosyn. Monitor SAMUEL drain output. Repeat labs tomorrow morning. Encouraged walking the halls this afternoon and OOB to chair, IS use. Additional Plan I have discussed the patient's case and plan of care with Dr. Stewart. Subjective Subjective Date/Time Seen: 02/01/22 12:32 Post Op day: 1 (Laparoscopic appendectomy, drainage intraabdominal abscess) Patient reports: no new complaints, pain is less, tolerating liquids well, voiding w/o difficulty and afebrile Interval history: Patient seen and examined. He reports feeling well today. He has pain at his incisions with a cough or movement, but he reports feeling much better today with the abdominal pain he felt before surgery has improved. Denies nausea, vomiting, or bloating. Tolerating liquids. No other complaints at this time. Review of Systems Review of Systems: All systems reviewed & are unremarkable except as noted in HPI and below Constitutional: Constitutional: Reports as per HPI, Reports no additional constitutional complaints, Denies chills and Denies fever(s) Cardiovascular: Cardiovascular: Reports no additional cardiovascular complaints, Denies chest pain and Denies leg edema Respiratory: Respiratory: Reports no additional respiratory complaints, Denies chest congestion, Reports cough (dry, mild) and Denies dyspnea Gastrointestinal: Gastrointestinal: Reports as per HPI and Reports no additional gastrointestinal complaints Neurologic: Reports system reviewed and no additional complaints, except as documented, Denies Abnormal speech present and Denies focal weakness Exam Const: General: comfortable, no acute distress, alert and awake Orientation/consciousness: patient oriented x3 Resp: Effort & Inspection: normal respiratory effort Auscultation: clear to auscultation bilaterally Cardio: Rate: regular rate Rhythm: regular rhythm GI: Inspection: non-distended, incision (Abdominal incisions clean and dry) and other (SAMUEL drain with cloudy serosanguineous drainage) GI Palp: Yes Soft to palpation, Yes Tenderness to palpation present (GI) (incisional and RLQ mild TTP), No Guarding due to palpation present (GI) and No Rebound tenderness present Auscultation: normal bowel sounds Neuro: General: moves all extremities and no focal motor deficits Extrem: General: no clubbing, cyanosis or edema and no calf tenderness Psych: Insight: Good insight present (Psych) Judgement: Good judgement present (Psych) Objective Data Vital Signs Vital Signs: Vital Signs - 24 hr 01/31/22 15:28 01/31/22 16:05 01/31/22 17:50 Temperature 97.9 F 99.0 F 98.4 F Pulse Rate 106 H 95 110 H Respiratory Rate 18 18 29 H Blood Pressure 146/87 H 147/72 H 153/87 H Pulse Oximetry 94 100 96 01/31/22 18:05 01/31/22 18:20 01/31/22 18:34 Temperature Pulse Rate 104 H 105 H 103 H Respiratory Rate 20 19 17 Blood Pressure 119/89 152/66 H 137/67 Pulse Oximetry 100 91 94 01/31/22 18:55 01/31/22 19:07 01/31/22 19:21 Temperature 97.8 F 97.6 F 98.8 F Pulse Rate 102 H 101 H 100 Respiratory Rate 20 18 20 Blood Pressure 111/62 117/65 121/73 Pulse Oximetry 93 100 95 01/31/22 20:21 01/31/22 20:30 01/31/22 22:00 Temperature 98.8 F 98.8 F Pulse Rate 100 100 Respiratory Rate 20 20 Blood Pressure 121/73 121/73 Pulse Oximetry 95 95 95 02/01/22 00:21 02/01/22 04:21 02/01/22 05:06 Temperature 99.3 F 98.3 F 98.3 F Pulse Rate 94 79 79 Re
[2022-02-01] MEDS: HYDROmorphone HCL INJ (*CRX) 1 MG/ML SYR 0.5 MG IV PUSH (14:54)
[2022-02-01] MEDS: IBUPROFEN 600 MG TABLET PO (16:55)
[2022-02-01] MEDS: HYDROcodone/acetaminophen (*CRX) 5-325 MG TABLET 1 TAB PO (17:55)
[2022-02-01] MEDS: DOCUSATE SODIUM 100 MG CAPSULE PO (19:45)
[2022-02-02 05:16] VITALS: BP 145/88; PULSE 75; RESP 20; TEMP 36.1; O2SAT 98
[2022-02-02] MEDS: LACTATED RINGERS 1,000 ML 250 ML IV CONT ×2 (06:40→17:04)
[2022-02-02 06:41] LABS: Hematocrit 41.5 % (42.0-52.0); Hemoglobin 13.7 g/dL (14.0-18.0); Mean Corpuscular Hemoglobin 31.6 pg (26-34); Mean Corpuscular Volume 95.6 fl (80-100); Mean Platelet Volume 11.4 fl (7.4-10.4); Platelet Count Result 198 k/mm3 (150-375); Red Blood Count 4.34 M/mm3 (4.6-6.20); Red Cell Distribution Width 13.6 % (11.5-14.5); White Blood Count 12.6 K/mm3 (4.5-10.0)
[2022-02-02] MEDS: ONDANSETRON INJ 4 MG/2 ML VIAL IV PUSH (06:44)
[2022-02-02 07:00] LABS: Anion Gap 6 mmol/L (8-16); Blood Urea Nitrogen 25 mg/dL (9-20); Calcium 8.3 mg/dL (8.4-10.2); Carbon Dioxide 29 mmol/L (22-30); Chloride 100 mmol/L (98-107); Estimated CRCL calculation 65 ml/min; Estimated Glomerular Filt Rate > 60; Glucose 114 mg/dL (65-110); Potassium 3.5 mmol/L (3.4-5.0); Sodium 135 mmol/L (137-145)
[2022-02-02] MEDS: ENOXAPARIN 40 MG/0.4 ML SYRINGE SUB-Q (08:32)
[2022-02-02] MEDS: DOCUSATE SODIUM 100 MG CAPSULE PO (08:32)
--- NOTE | 2022-02-02 09:21 | PM.PNGS ---
Progress Note: A&P Assessment and Plan (1) Acute appendicitis with perforation and localized peritonitis: Qualifiers: Appendicitis abscess presence: without abscess Appendicitis gangrene presence: unspecified whether gangrene present Qualified Code(s): K35.32 - Acute appendicitis with perforation and localized peritonitis, without abscess Code(s): K35.32 - Acute appendicitis with perforation and localized peritonitis, without abscess Status: Acute Assessment and Plan: Continue IV antibiotics, monitor drain output (2) Postoperative ileus: Code(s): K91.89 - Other postprocedural complications and disorders of digestive system; K56.7 - Ileus, unspecified Status: Acute Assessment and Plan: IV fluids restarted, encouraged ambulation, will get KUB this AM Subjective Subjective Date/Time Seen: 02/02/22 09:22 Interval history: No flatus or BM yet. Having some tenderness and bloating. A little nausea and spit up once but did not vomit a large amount. Exam GI: Inspection: distended and other (SAMUEL serosanguinous) GI Palp: Yes Soft to palpation and Yes Tenderness to palpation present (GI) (mild RLQ) Objective Data Vital Signs Vital Signs: Vital Signs - 24 hr 02/01/22 12:21 02/01/22 14:00 02/01/22 16:21 Temperature 37.1 C 37.1 C 36.8 C Pulse Rate 84 84 73 Respiratory Rate 20 20 18 Blood Pressure 144/81 H 144/81 H 166/74 H Pulse Oximetry 94 94 94 02/01/22 20:16 02/01/22 20:21 02/01/22 22:00 Temperature 35.9 C L 35.9 C L Pulse Rate 76 76 Respiratory Rate 20 20 Blood Pressure 138/84 138/84 Pulse Oximetry 96 95 95 02/02/22 05:16 Temperature 36.1 C L Pulse Rate 75 Respiratory Rate 20 Blood Pressure 145/88 H Pulse Oximetry 98 Intake/Output Intake/Output: Intake & Output 01/30/22 01/31/22 02/01/22 02/02/22 23:59 23:59 23:59 23:59 Intake Total 2850 1730 390 Output Total 830 715 110 Balance 2020 1015 280 Meds/Results Medications: Active Medications Generic Name Dose Route Start Last Admin Trade Name Freq PRN Reason Stop Dose Admin Hydrocodone Bitart/Acetaminophen 1 tab 01/31/22 18:36 02/01/22 17:55 Hydrocodone/Acetaminophen (*Crx) 5-325 Mg Tablet PO 1 tab Q4H PRN Administration Pain Rated 4-6 Hydrocodone Bitart/Acetaminophen 1 tab 01/31/22 18:36 Hydrocodone/Acetaminophen (*Crx) 10-325 Mg Tablet PO Q6H PRN Pain Rated 7-10 Bisacodyl 10 mg 02/02/22 07:26 Bisacodyl 10 Mg Suppository RECTAL QAM PRN Constipation Docusate Sodium 100 mg 02/01/22 21:00 02/02/22 08:32 Docusate Sodium 100 Mg Capsule PO 100 mg Q12HR ERIKA Administration Enoxaparin Sodium 40 mg 02/01/22 09:00 02/02/22 08:32 Enoxaparin 40 Mg/0.4 Ml Syringe SUB-Q 40 mg DAILY ERIKA Administration Hydromorphone HCl 0.5 mg 01/31/22 18:36 02/01/22 14:54 Hydromorphone Hcl Inj (*Crx) 1 Mg/Ml Syr IV PUSH 0.5 mg Q2H PRN Administration Pain Rated 4-6 Hydromorphone HCl 1 mg 01/31/22 18:36 Hydromorphone Hcl Inj (*Crx) 1 Mg/Ml Syr IV PUSH Q2H PRN Pain Rated 7-10 Piperacillin/Tazobactam/Dextrose 3.375 gm in 50 mls @ 100 mls/hr 01/31/22 23:00 02/02/22 06:45 Zosyn 3.375 Gm/D5w 50ml Pm IVPB Infused Q6H ERIKA Infusion Lactated Ringer's 1,000 mls @ 250 mls/hr 02/02/22 06:35 02/02/22 06:40 Lr - Lactated Ringers Iv IV CONT 250 mls/hr .Q4H ERIKA Administration Protocol Ibuprofen 600 mg 01/31/22 18:36 02/01/22 16:55 Ibuprofen 600 Mg Tablet PO 600 mg Q6H PRN Administration Pain Rated 1-3 Ondansetron HCl 4 mg 01/30/22 16:50 02/02/22 06:44 Ondansetron Inj 4 Mg/2 Ml Vial IV PUSH 4 mg Q4H PRN Administration Nausea Polyethylene Glycol 17 gm 02/01/22 09:00 02/01/22 07:45 Polyethylene Glycol 3350 17 Gm Powd.Pack PO 17 gm QAM ERIKA Administration Radiology Results: ITS Impressions Abdomen/Pelvis CT 01/30/22 16:32 IMPRESSION: Acute perforated append
[2022-02-02] MEDS: BISACODYL 10 MG SUPPOSITORY RECTAL (10:17)
[2022-02-02 14:00] VITALS: BP 155/82; PULSE 64; RESP 18; TEMP 36.7; O2SAT 95
[2022-02-02 14:34] VITALS: O2SAT 96
[2022-02-02] MEDS: HYDROcodone/acetaminophen (*CRX) 5-325 MG TABLET 1 TAB PO (17:07)
[2022-02-02 20:04] VITALS: BP 153/66; PULSE 77; RESP 14; TEMP 36.4; O2SAT 94
[2022-02-02 20:08] VITALS: O2SAT 93
[2022-02-02] MEDS: traZODone HCL 50 MG TABLET PO (22:11)
[2022-02-03] MEDS: LACTATED RINGERS 1,000 ML 125 ML IV CONT ×3 (03:10→23:30)
[2022-02-03 04:27] VITALS: BP 155/69; PULSE 73; RESP 16; TEMP 36.8; O2SAT 94
[2022-02-03 05:58] LABS: Hematocrit 40.7 % (42.0-52.0); Hemoglobin 13.4 g/dL (14.0-18.0); Mean Corpuscular HGB Conc 32.9 g/dl (32-36); Mean Corpuscular Hemoglobin 31.8 pg (26-34); Mean Corpuscular Volume 96.4 fl (80-100); Mean Platelet Volume 11.3 fl (7.4-10.4); Platelet Count Result 230 k/mm3 (150-375); Red Blood Count 4.22 M/mm3 (4.6-6.20); Red Cell Distribution Width 13.5 % (11.5-14.5); White Blood Count 11.3 K/mm3 (4.5-10.0)
[2022-02-03 06:07] LABS: Anion Gap 9 mmol/L (8-16); Blood Urea Nitrogen 20 mg/dL (9-20); Carbon Dioxide 28 mmol/L (22-30); Chloride 100 mmol/L (98-107); Estimated CRCL calculation 80 ml/min; Estimated Glomerular Filt Rate > 60; Glucose 132 mg/dL (65-110); Potassium 3.3 mmol/L (3.4-5.0); Sodium 137 mmol/L (137-145)
--- NOTE | 2022-02-03 06:30 | PC.NURSE ---
0445 PT C/O EPIGASTRIC DISCOMFORT, AMBULATED IN [place] AND SAT UP IN CHAIR. BELCHING FREQUENTLY. STATES FEELS MUCH BETTER
[2022-02-03] MEDS: ENOXAPARIN 40 MG/0.4 ML SYRINGE SUB-Q (09:50)
[2022-02-03] MEDS: IBUPROFEN 600 MG TABLET PO (10:50)
--- NOTE | 2022-02-03 11:10 | PM.PNGS ---
Progress Note: A&P Assessment and Plan (1) Acute appendicitis with perforation and localized peritonitis: Qualifiers: Appendicitis abscess presence: without abscess Appendicitis gangrene presence: unspecified whether gangrene present Qualified Code(s): K35.32 - Acute appendicitis with perforation and localized peritonitis, without abscess Code(s): K35.32 - Acute appendicitis with perforation and localized peritonitis, without abscess Status: Acute Assessment and Plan: Continue IV antibiotics May remove SAMUEL drain today or tomorrow. (2) Postoperative ileus: Code(s): K91.89 - Other postprocedural complications and disorders of digestive system; K56.7 - Ileus, unspecified Status: Acute Assessment and Plan: KUB suggests ileus. Feeling better this morning and passing gas. Will try clear liquids today. Give dulcolax suppository. Encouraged increasing activity. Additional Plan I have discussed the patient's case and plan of care with Dr. Stewart. Potassium replaced with IV KCL, repeat labs tomorrow. Subjective Subjective Date/Time Seen: 02/03/22 11:10 Post Op day: 3 (lap appy with drainage of intraabdominal abscess) Patient reports: no new complaints, feels better, voiding w/o difficulty, flatus, bowel movement (last night), nausea (resolved), vomiting and afebrile Interval history: Patient seen and examined. Chart reviewed. He reports having a BM last night around 10 pm. He continued to have nausea throughout the night and vomited approximately 6 times. He is feeling better this morning and a little less bloated. He reports lots of flatus today. Overall, he reports he is feeling better today. He was able to get up and walk the halls yesterday as well but has not yet today. Review of Systems Review of Systems: All systems reviewed & are unremarkable except as noted in HPI and below Cardiovascular: Cardiovascular: Reports no additional cardiovascular complaints, Denies chest pain and Denies dyspnea Respiratory: Respiratory: Reports no additional respiratory complaints and Denies cough Exam Const: General: awake; No acute distress Orientation/consciousness: patient oriented x3 Resp: Effort & Inspection: normal respiratory effort Auscultation: clear to auscultation bilaterally Cardio: Rate: regular rate Rhythm: regular rhythm GI: Inspection: incision (Abdominal incisions clean and dry) and other (mildly distended) GI Palp: Yes Soft to palpation, Yes Tenderness to palpation present (GI) (diffusely tender) and No Guarding due to palpation present (GI) Auscultation: normal bowel sounds Neuro: General: no focal motor deficits Extrem: General: normal to inspection and no calf tenderness Psych: Insight: Good insight present (Psych) Judgement: Good judgement present (Psych) Objective Data Vital Signs Vital Signs: Vital Signs - 24 hr 02/02/22 14:00 02/02/22 14:34 02/02/22 20:04 Temperature 98.1 F 97.6 F Pulse Rate 64 77 Respiratory Rate 18 14 Blood Pressure 155/82 H 153/66 H Pulse Oximetry 95 96 94 02/02/22 20:08 02/03/22 04:27 Temperature 98.2 F Pulse Rate 73 Respiratory Rate 16 Blood Pressure 155/69 H Pulse Oximetry 93 94 Intake/Output Intake/Output: Intake & Output 01/31/22 02/01/22 02/02/22 02/03/22 23:59 23:59 23:59 23:59 Intake Total 2850 1730 540 50 Output Total 830 715 745 600 Balance 2019 1015 -205 -550 Meds/Results Medications: Active Medications Generic Name Dose Route Start Last Admin Trade Name Freq PRN Reason Stop Dose Admin Hydrocodone Bitart/Acetaminophen 1 tab 01/31/22 18:36 02/02/22 17:07 Hydrocodone/Acetaminophen (*Crx) 5-325 Mg Tablet PO 1 tab Q4H PRN Administration Pain Rated 4-6 Hydrocodone Bitart/Acetaminophen 1 tab 01/31/22 18:36 Hydrocodone/Acetaminophen (*Crx) 10-325 Mg Tablet PO Q6H PRN Pain Rated 7-10 Enoxaparin Sodium 40 mg 02/01/22 09:00 02/03/22 09:50 Enoxap
[2022-02-03] MEDS: POTASSIUM CHLORIDE INJ 40 MEQ in SODIUM CHLORIDE 0.9% IV 500 ML 130 MEQ IVPB (11:35)
[2022-02-03] MEDS: BISACODYL 10 MG SUPPOSITORY RECTAL (13:27)
[2022-02-03 14:00] VITALS: BP 153/67; PULSE 76; RESP 16; TEMP 37; O2SAT 96
--- NOTE | 2022-02-03 14:27 | PC.NURSE ---
On 02/03/22, the student, [Kj Blanc], provided care and completed [facility] documentation on this patient. I have reviewed the student's documentation and agree with the findings.
[2022-02-03 20:03] VITALS: BP 160/65; PULSE 72; RESP 18; TEMP 36.6; O2SAT 95
[2022-02-04 03:38] VITALS: BP 168/73; PULSE 55; RESP 18; TEMP 36.2; O2SAT 96
[2022-02-04 05:20] LABS: Basophils Absolute Auto 0.1 K/mm3 (0.0-0.1); Basophils Percent Auto 0.9 % (0.2-1.2); Eosinophils Absolute Auto 0.1 K/mm3 (0-0.3); Eosinophils Percent Auto 0.6 % (0-4.4); Hematocrit 39.9 % (42.0-52.0); Hemoglobin 13.2 g/dL (14.0-18.0); Immature Granulocyte Absolute 0.37 K/mm3 (0.00-0.031); Immature Granulocyte Percent A 3.4 % (0-0.5); Lymphocytes Absolute Auto 1.51 K/mm3 (0.9-3.2); Lymphocytes Percent Auto 13.9 % (18.3-44.2); Mean Corpuscular HGB Conc 33.1 g/dl (32-36); Mean Corpuscular Hemoglobin 31.4 pg (26-34); Mean Corpuscular Volume 94.8 fl (80-100); Mean Platelet Volume 11.2 fl (7.4-10.4); Monocytes Percent Auto 9.5 % (2.6-8.5); Neutrophils Absolute Auto 7.8 K/mm3 (1.3-6.7); Neutrophils Percent Auto 71.7 % (45.5-73.1); Platelet Count Result 246 k/mm3 (150-375); Red Blood Count 4.21 M/mm3 (4.6-6.20); Red Cell Distribution Width 13.5 % (11.5-14.5); White Blood Count 10.9 K/mm3 (4.5-10.0)
[2022-02-04 05:28] LABS: Anion Gap 7 mmol/L (8-16); Blood Urea Nitrogen 20 mg/dL (9-20); Calcium 8.3 mg/dL (8.4-10.2); Carbon Dioxide 31 mmol/L (22-30); Chloride 103 mmol/L (98-107); Estimated CRCL calculation 80 ml/min; Estimated Glomerular Filt Rate > 60; Glucose 128 mg/dL (65-110); Magnesium 2.1 mg/dL (1.6-2.3); Potassium 3.5 mmol/L (3.4-5.0); Sodium 141 mmol/L (137-145)
[2022-02-04] MEDS: ENOXAPARIN 40 MG/0.4 ML SYRINGE SUB-Q (09:05)
[2022-02-04] MEDS: ONDANSETRON INJ 4 MG/2 ML VIAL IV PUSH (09:05)
[2022-02-04] MEDS: LACTATED RINGERS 1,000 ML 125 ML IV CONT (09:05)
--- NOTE | 2022-02-04 11:27 | PM.PNGS ---
Progress Note: A&P Assessment and Plan (1) Postoperative ileus: Code(s): K91.89 - Other postprocedural complications and disorders of digestive system; K56.7 - Ileus, unspecified Status: Acute Assessment and Plan: Seems to be resolving. Xray this AM still shows some dilated bowel loops but clinically resolving with good bowel sounds and less distention. Will remove NG and start full liquids, stop IV fluids. Increase activity. Hopefully home tomorrow if able to advance diet. SAMUEL drain removed this AM. (2) Acute appendicitis with perforation and localized peritonitis: Qualifiers: Appendicitis abscess presence: without abscess Appendicitis gangrene presence: unspecified whether gangrene present Qualified Code(s): K35.32 - Acute appendicitis with perforation and localized peritonitis, without abscess Code(s): K35.32 - Acute appendicitis with perforation and localized peritonitis, without abscess Status: Acute Assessment and Plan: Continue IV antibiotics. Will transition to oral abx on discharge for 5 more days. Subjective Subjective Date/Time Seen: 02/04/22 11:27 Interval history: Passing flatus, had a small BM this AM. Less bloating. Hungry. Exam GI: Inspection: non-distended and incision (intact) GI Palp: Yes Soft to palpation, No Tenderness to palpation present (GI) and No Guarding due to palpation present (GI) Auscultation: normal bowel sounds Objective Data Vital Signs Vital Signs: Vital Signs - 24 hr 02/03/22 14:00 02/03/22 20:03 02/04/22 03:38 Temperature 37.0 C 36.6 C 36.2 C L Pulse Rate 76 72 55 L Respiratory Rate 16 18 18 Blood Pressure 153/67 H 160/65 H 168/73 H Pulse Oximetry 96 95 96 Intake/Output Intake/Output: Intake & Output 02/01/22 02/02/22 02/03/22 02/04/22 23:59 23:59 23:59 23:59 Intake Total 1730 540 770 100 Output Total 860 267 5224 1770 Balance 3940 -480 -960 -7044 Meds/Results Medications: Active Medications Generic Name Dose Route Start Last Admin Trade Name Freq PRN Reason Stop Dose Admin Hydrocodone Bitart/Acetaminophen 1 tab 01/31/22 18:36 02/02/22 17:07 Hydrocodone/Acetaminophen (*Crx) 5-325 Mg Tablet PO 1 tab Q4H PRN Administration Pain Rated 4-6 Hydrocodone Bitart/Acetaminophen 1 tab 01/31/22 18:36 Hydrocodone/Acetaminophen (*Crx) 10-325 Mg Tablet PO Q6H PRN Pain Rated 7-10 Enoxaparin Sodium 40 mg 02/01/22 09:00 02/04/22 09:05 Enoxaparin 40 Mg/0.4 Ml Syringe SUB-Q 40 mg DAILY ERIKA Administration Hydromorphone HCl 0.5 mg 01/31/22 18:36 02/01/22 14:54 Hydromorphone Hcl Inj (*Crx) 1 Mg/Ml Syr IV PUSH 0.5 mg Q2H PRN Administration Pain Rated 4-6 Hydromorphone HCl 1 mg 01/31/22 18:36 Hydromorphone Hcl Inj (*Crx) 1 Mg/Ml Syr IV PUSH Q2H PRN Pain Rated 7-10 Piperacillin/Tazobactam/Dextrose 3.375 gm in 50 mls @ 100 mls/hr 01/31/22 23:00 02/04/22 06:17 Zosyn 3.375 Gm/D5w 50ml Pm IVPB Infused Q6H ERIKA Infusion Ibuprofen 600 mg 01/31/22 18:36 02/03/22 10:50 Ibuprofen 600 Mg Tablet PO 600 mg Q6H PRN Administration Pain Rated 1-3 Metoclopramide HCl 10 mg 02/04/22 12:00 Metoclopramide Hcl Inj 10 Mg/2 Ml Vial IV PUSH Q6HR ERIKA Ondansetron HCl 4 mg 01/30/22 16:50 02/04/22 09:05 Ondansetron Inj 4 Mg/2 Ml Vial IV PUSH 4 mg Q4H PRN Administration Nausea Polyethylene Glycol 17 gm 02/01/22 09:00 02/01/22 07:45 Polyethylene Glycol 3350 17 Gm Powd.Pack PO 17 gm QAM ERIKA Administration Trazodone HCl 50 mg 02/02/22 20:41 02/02/22 22:11 Trazodone Hcl 50 Mg Tablet PO 50 mg HS PRN Administration Insomnia Radiology Results: ITS Impressions Abdomen/Pelvis CT 01/30/22 16:32 IMPRESSION: Acute perforated appendicitis. No abscess. I discussed impression with Pantera Horne MD at 01/30/2022 16:38 CDT. Abdomen X-Ray 02/04/22 07:05 IMPRESSION: 1. Stable appearance of mult
[2022-02-04] MEDS: METOCLOPRAMIDE HCL INJ 10 MG/2 ML VIAL IV PUSH ×3 (11:40→23:24)
[2022-02-04 14:00] VITALS: BP 147/63; PULSE 56; RESP 14; TEMP 36.3; O2SAT 96
[2022-02-04 19:47] VITALS: BP 149/58; PULSE 71; RESP 20; TEMP 36.3; O2SAT 96
[2022-02-05] MEDS: ONDANSETRON INJ 4 MG/2 ML VIAL IV PUSH (00:10)
[2022-02-05] MEDS: HYDROcodone/acetaminophen (*CRX) 5-325 MG TABLET 1 TAB PO (00:21)
[2022-02-05 04:37] VITALS: BP 160/75; PULSE 70; RESP 18; TEMP 36.2; O2SAT 97
[2022-02-05] MEDS: METOCLOPRAMIDE HCL INJ 10 MG/2 ML VIAL IV PUSH ×2 (05:13→11:29)
[2022-02-05 05:23] LABS: Hematocrit 38.8 % (42.0-52.0); Hemoglobin 12.7 g/dL (14.0-18.0); Mean Corpuscular HGB Conc 32.7 g/dl (32-36); Mean Corpuscular Hemoglobin 31.6 pg (26-34); Mean Corpuscular Volume 96.5 fl (80-100); Platelet Count Result 250 k/mm3 (150-375); Red Blood Count 4.02 M/mm3 (4.6-6.20); Red Cell Distribution Width 13.7 % (11.5-14.5)
[2022-02-05 05:30] LABS: Anion Gap 7 mmol/L (8-16); Blood Urea Nitrogen 19 mg/dL (9-20); Carbon Dioxide 29 mmol/L (22-30); Chloride 105 mmol/L (98-107); Estimated CRCL calculation 80 ml/min; Estimated Glomerular Filt Rate > 60; Glucose 110 mg/dL (65-110); Potassium 3.2 mmol/L (3.4-5.0); Sodium 141 mmol/L (137-145)
[2022-02-05] MEDS: CALCIUM CARBONATE (TUMS) 500 MG (200 MG ELEMENTAL) PO (06:34)
[2022-02-05] MEDS: ENOXAPARIN 40 MG/0.4 ML SYRINGE SUB-Q (08:06)
--- NOTE | 2022-02-05 11:24 | PM.DS ---
DS: Admitting Diagnosis Discharge Date 02/05/2022 Admitting Diagnosis acute perforated appendicitis DS: Discharge Diagnosis Discharge Diagnosis (1) Acute appendicitis with perforation and localized peritonitis: Qualifiers: Appendicitis abscess presence: without abscess Appendicitis gangrene presence: unspecified whether gangrene present Qualified Code(s): K35.32 - Acute appendicitis with perforation and localized peritonitis, without abscess Code(s): K35.32 - Acute appendicitis with perforation and localized peritonitis, without abscess Status: Acute Assessment and Plan: doing well, continue routine postoperative care, home with antibiotics x5 days, p.o. analgesics, follow-up Dr. Bird 2 weeks (2) Ileus following gastrointestinal surgery: Code(s): K91.89 - Other postprocedural complications and disorders of digestive system; K56.7 - Ileus, unspecified Status: Acute Assessment and Plan: resolved, cindy diet, +bowel fxn DS: Summary Hospital Course Reason for hospitalization: acute perforated appendicitis Hospital Course: The patient is a 71 year old male that presented to the hospital with acute perforated appendicitis. The patient underwent laparoscopic appendectomy and intra-abdominal drainage of abscess on 01/31/2022, please see full operative report for details. Postoperative, the patient was transferred to the surgical floor and continued on antibiotics. The patient also had a drain placed in his right lower quadrant. The patient developed a postoperative ileus and NG decompression was started on 02/02. Over the next few days, his ileus resolved and NG was able to be removed. On 02/05, he is having normal bowel function and tolerating a regular diet. He will be discharged home with p.o. antibiotics and analgesia. He will follow up in 2 weeks. Status at Discharge Functional status at discharge: independent ambulation Overall status at discharge: patient is progressing back to baseline Time Spent with Patient Time attestation: Total time spent providing and/or coordinating discharge services: Time spent: Less than 30 minutes Exam Const: General: cooperative, comfortable and no acute distress Resp: Effort & Inspection: normal respiratory effort Auscultation: clear to auscultation bilaterally Cardio: Rate: regular rate Rhythm: regular rhythm GI: Inspection: normal to inspection and incision GI Palp: Yes Soft to palpation, No Tenderness to palpation present (GI), No Guarding due to palpation present (GI) and No Rigid due to palpation DS: Data Data Completed and Pending Completed studies during hospitalization: Pending at discharge 01/31/22 16:52 Surgical [PTH] Routine Labs on day of discharge: Labs from last 24 hours 02/05/22 02/05/22 05:03 05:03 WBC 10.0 RBC 4.02 L Hgb 12.7 L Hct 38.8 L MCV 96.5 MCH 31.6 MCHC 32.7 RDW 13.7 Plt Count 250 MPV 11.0 H Sodium 141 Potassium 3.2 L Chloride 105 Carbon Dioxide 29 Anion Gap 7 L BUN 19 Creatinine 0.80 Estim Creat Clear Calc 80 Estimated GFR > 60 Glucose 110 Calcium 8.0 L Discharge Plan Discharge Attending physician on discharge: Temo Bird Discharging Clinician: Marilyn Conway Anticipated Discharge Date/Time: 02/05/22 11:20 Patient Disposition: Home, Self-Care Activity: other - see discharge instructions Diet: other - see discharge instructions Wound Care Instructions: other - see discharge instructions Discharge Instructions: DISCHARGE INSTRUCTION SHEET FOR HERNIA, GALLBLADDER AND APPENDIX SURGERIES DR. BIRD PATIENT TO TAKE HOME 1. May shower in 24 hours, no soaking in bath x 2weeks. 2. Call office for: Wound increasingly painful or bleeding Vomiting Fever of greater than 101 degrees 3. If no bowel movement for three days, take 1 oz. (30 ml) Milk of Magnesia or MiraLax 17g 1 to 2 times daily. 4.
== END 2022-02-05 13:04 | disposition home or self-care (01) | DRG 339 ==
LOC: ANHED 16:53 → ANH2MED 17:41
PROVIDERS: Nurse Practitioner Family; Admitting Provider Surgery; Emergency Provider Emergency Medicine; PCP Family Medicine; Visit Provider Surgery
PROC: 0DTJ4ZZ Resection of Appendix, Percutaneous Endoscopic Approach (ICD-10-PCS; CPT 44970; principal; 2022-01-31 17:00)
DX: K35.33 Acute appendicitis with perforation, localized peritonitis, and gangrene, with abscess (principal); K91.89 Other postprocedural complications and disorders of digestive system; K56.7 Ileus, unspecified; Z87.891 Personal history of nicotine dependence; Z86.19 Personal history of other infectious and parasitic diseases
CPT/HCPCS: 36415; 74018; 74177; 80048; 80053; 81001; 82948; 83605; 83690; 83735; 85025; 85027; 85610; 88304; 96361; 96374; 96375; 96376; 99285; A9270; G0378; J0330; J0690; J1100; J1170; J1650; J2250; J2270; J2405; J2543; J2704; J2765; J3480; J7030; J7040; J7120; Q9967

== ENCOUNTER 2022-02-14 11:11 | Outpatient (CLI) | payer MEDICARE, SELFPAY ==
[2022-02-17 14:57] LABS: Hepatitis C Viral RNA PCR <15 IU/mL
== END 2022-02-14 11:12 | disposition home or self-care (01) ==
LOC: CHSLAB 11:13
PROVIDERS: PCP Family Medicine; Visit Provider Family Medicine
DX: Z86.19 Personal history of other infectious and parasitic diseases (principal)
CPT/HCPCS: 36415; 87522

== ENCOUNTER 2023-01-31 08:28 | Outpatient (CLI) | payer MEDICARE, OTHER, SELFPAY ==
--- NOTE | ~2023-01-31 | CT_ITS ---
CT Scan of the Chest without Contrast: Clinical Indication: Smoking history, lung cancer screening Technique: Contiguous sections were acquired throughout the chest without intravenous contrast. Dose reduction technique was used on this scan by utilizing automated exposure control and iterative recon struction technique. The dose-length product (DLP) was 91.71 mGy-cm. COMPARISON: 01/29/2022 and 04/13/2020 Findings: There is no evidence of any significant mediastinal, hilar or axillary lymphadenopathy. There are ath erosclerotic calcifications of the aorta. No aortic aneurysm. There is no evidence of pleural or pericardial effusion. The lungs are clear. No pulmonary nodules or infiltrates are noted. Images through the upper abdomen reveal no abnormalities. Stable mild compression deformity of T12. Impression: Lung-RADS 1: Negative. [address] advised[address] Reviewed, dictated and finalized at [facility]. Impression: Lung-RADS 1: Negative. [address] advised.
== END 2023-01-31 08:29 | disposition home or self-care (01) ==
LOC: CHSIMG 08:30
PROVIDERS: PCP Family Medicine; Visit Provider Nurse Practitioner Family
DX: Z12.2 Encounter for screening for malignant neoplasm of respiratory organs (principal); Z87.891 Personal history of nicotine dependence
CPT/HCPCS: 71271

== ENCOUNTER 2023-03-13 10:27 | Outpatient (CLI) | payer MEDICARE, SELFPAY ==
[2023-03-13 10:49] LABS: Hemoglobin 14.1 g/dL (12.4-15.3); Mean Corpuscular HGB Conc 32.8 g/dL (32.0-36.0); Mean Corpuscular Volume 97.7 fL (78.0-102.0); Mean Platelet Volume 10.5 fl (8.7-11.0); Platelet Count Result 205 K/mm3 (150-420); Red Cell Distribution Width 12.9 % (11.6-14.4); White Blood Count 5.9 K/mm3 (4.8-10.8)
[2023-03-13 11:14] LABS: Alanine Aminotransferase 26 U/L (16-63); Albumin Level 4.1 g/dL (3.4-5.0); Alkaline Phosphatase 92 U/L (46-116); Anion Gap 9 mmol/L (8-16); Aspartate Amino Transferase 20 U/L (15-37); Bilirubin,Total 0.6 mg/dL (0.00-1.00); Blood Urea Nitrogen 24 mg/dL (7-18); Calcium 8.8 mg/dL (8.5-10.1); Carbon Dioxide 28 mmol/L (21-32); Chloride 106 mmol/L (98-108); Estimated Glomerular Filt Rate > 60; Glucose 101 mg/dL (70-99); Osmolality Calculated 300 mOsm/kg (285-295); Potassium 4.3 mmol/L (3.5-5.1); Sodium 143 mmol/L (136-145); Total Protein 7.3 g/dL (6.4-8.2)
[2023-03-13 11:15] LABS: CRP < 0.5 mg/dL (0.0-0.9)
== END 2023-03-13 10:28 | disposition home or self-care (01) ==
LOC: CHSLAB 10:28
PROVIDERS: PCP Family Medicine; Visit Provider Family Medicine
DX: R19.7 Diarrhea, unspecified (principal)
CPT/HCPCS: 36415; 80053; 85027; 86140

== ENCOUNTER 2023-03-15 07:53 | Outpatient (CLI) | payer MEDICARE, OTHER, SELFPAY ==
[2023-03-15 08:20] LABS: Occult Blood Negative (Negative)
[2023-03-21 20:17] LABS: Lactoferrin, Stool Positive (Negative)
== END 2023-03-15 07:54 | disposition home or self-care (01) ==
LOC: CHSLAB 07:55
PROVIDERS: PCP Family Medicine; Visit Provider Family Medicine
DX: R19.7 Diarrhea, unspecified (principal)
CPT/HCPCS: 82272; 83630; 87045; 87177; 87209; 87427; 87493

== ENCOUNTER 2024-02-08 09:10 | Outpatient (CLI) | payer MEDICARE, OTHER, SELFPAY ==
--- NOTE | ~2024-02-08 | CT_ITS ---
CT Scan of the Chest without Contrast: Clinical Indication: Lung cancer screening Technique: Contiguous sections were acquired throughout the chest without intravenous contrast. Dose reduction technique was used on this scan by utilizing automated exposure control and iterative recon struction technique. The dose-length product (DLP) was 114.22 mGy-cm. Findings: There is no evidence of any significant mediastinal, hilar or axillary lymphadenopathy. The mediastin al soft tissues appear normal. There is no evidence of pleural or pericardial effusion. The lungs are clear. No pulmonary nodules or infiltrates are noted. Images through the upper abdomen reveal no abnormalities. Chronic T12 compression deformity noted. Impression: Lung RADS 1: Negative. 12 month follow-up screening CT advised. Reviewed, dictated and finalized at location . Impression: Lung RADS 1: Negative. 12 month follow-up screening CT advised.
== END 2024-02-08 09:11 | disposition home or self-care (01) ==
LOC: CHSIMG 09:12
PROVIDERS: PCP Family Medicine; Visit Provider Nurse Practitioner Family
DX: Z12.2 Encounter for screening for malignant neoplasm of respiratory organs (principal); Z87.891 Personal history of nicotine dependence
CPT/HCPCS: 71271

== ENCOUNTER 2024-08-22 18:41 | Emergency (ER) | payer MEDICARE, OTHER, SELFPAY ==
--- NOTE | ~2024-08-22 | XR_ITS ---
EXAMINATION: XR ribs LT 2V DATE: 08/22/2024 19:12 INDICATION: Mid posterior rib pain after a fall. TECHNIQUE: 2 views of the left ribs on 4 radiographs were obtained. COMPARISON: Chest single view 01/29/2022, chest CT 02/08/2024 FINDINGS: There is no left-sided pneumonia, pleural effusion, or pneumothorax. The heart size is norm al. There are acute fractures of left fourth-sixth ribs. There are old healed fractures of left seven th-ninth ribs. There is an old healed fracture of proximal left humerus. IMPRESSION: 1. Acute fractures of left fourth-sixth ribs. Reviewed, dictated and finalized at location A.
[2024-08-22 18:46] VITALS: BP 138/70; PULSE 89; RESP 18; TEMP 36.6; O2SAT 99
[2024-08-22] MEDS: MORPHINE SULFATE (*CRX) 4 MG/ML INJ IM (19:11)
--- NOTE | 2024-08-22 19:19 | ED.FALL ---
HPI - Fall General Chief Complaint: Fall Stated Complaint: fall, back pain Source: patient and family Mode of arrival: ambulatory Limitations: no limitations History of Present Illness HPI Narrative: this is a 74-year-old male who presents after he fell off this step stool approximately 1 week ago and landed on his left mid rib area has been taking some naproxen with minimal relief and presents today with tender left rib area with no shortness of breath no fever chills no other injuries noted. complaint: fall Onset (ago): week(s) Fall from: standing Fall witnessed: yes, by family Place fall occurred: home Loss of consciousness: none Prolonged down time: no Symptoms prior to fall: none Context: tripped/slipped Location of injury: other ( left mid rib area pain and palpation) Related Data Allergies Allergy/AdvReac Type Severity Reaction Status Date / Time diclofenac Allergy Intermediate Hives Verified 08/22/24 18:46 Sulfonamides Allergy Intermediate Hives Uncoded 08/22/24 18:46 Review of Systems Review of Systems: All systems reviewed & are unremarkable except as noted in HPI and below PMFSH Past Medical History Medical History Centrilobular emphysema (07/23/18) High prostate specific antigen (PSA) (01/16/18) Hx of hepatitis C Need for 23-polyvalent pneumococcal polysaccharide vaccine Surgical History Surgical History History of laparoscopic appendectomy 01/31/22 Hx of tonsillectomy Normal colonoscopy 08/16/2018 Status post left foot surgery Family History Family History Mother No problems noted. Sibling Throat cancer Other Family history of type 2 diabetes mellitus Social History Social History Smoking packs per day: 1 Smoking cigarettes per day: 20.0 Years smoked: 25 Smoking pack-years: 25.00 Smoking status: Former smoker Tobacco type: cigarettes Smoking end date: 09/30/19 Alcohol intake: current Alcohol use details: occasional Substance use: current Substance use type: marijuana Do You Feel Safe in your Home?: Yes Lack of Transportation: No Lack of Food: Never True Current Housing: I Have Housing Concerned About Future Housing: No Difficulty Paying Gas/Electric Bills: No Difficulty Paying for Meds: No Currently Unemployed: YES Education: High School Diploma/GED Difficulty w/ Childcare or Family Care: No Living arrangements: with family Additional living arrangements comments: Lives with . 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 Gender identity (if verbalized by the patient): Male Sexual Orientation (if Verbalized by the Patient): Straight or Heterosexual Spiritual care concerns: No Exam Const: General: healthy appearing and no acute distress Nutritional Appearance: well nourished Orientation/consciousness: patient oriented x3 Neck: Neck: normal visual inspection, no lymphadenopathy and no meningeal signs Chest: Chest palpation & inspection: normal inspection of the chest Resp: Effort & Inspection: normal respiratory effort Auscultation: clear to auscultation bilaterally Cardio: Rate: regular rate Rhythm: regular rhythm GI: GI Palp: Yes Soft to palpation Auscultation: normal bowel sounds : General: Yes bladder normal to palpation Skin: General skin exam: normal color Rashes: no rashes Neuro: General: patient oriented x3 and moves all extremities Extrem: Other: Tender mid left rib area with palpation Course Course Emergency Course: patient received a dose of 4mg IM morphine and after reassessment pain level has improved x-ray performed and reviewed. Vital Signs Vital signs: Vital Signs Temperature 36.6 C 08/22/24 18:46
--- NOTE | 2024-08-22 19:50 | PC.NURSE ---
patient given incentive spirometer, education provided. Patient able to inhale up to 3000 x 5 during education.
[2024-08-22 19:57] VITALS: BP 128/76; PULSE 75; RESP 18; O2SAT 98
== END 2024-08-22 19:57 | disposition home or self-care (01) ==
PROVIDERS: Emergency Provider Emergency Medicine; PCP Family Medicine
DX: S22.42XA Multiple fractures of ribs, left side, initial encounter for closed fracture (principal); Z87.891 Personal history of nicotine dependence; W17.89XA Other fall from one level to another, initial encounter
CPT/HCPCS: 71100; 96372; 99283; J2270

== ENCOUNTER 2024-09-25 07:59 | Emergency (ER) | payer MEDICARE, SELFPAY ==
--- NOTE | ~2024-09-25 | CT_ITS ---
CT brain wo con Ordering provider: Sean Nazario MD History: 74 years Male with . FALL W/ LT POSTERIOR HI,X2DAYS AGO,HARDEN . Comparison: None. Technique: CT of the head without contrast. radiation reduction technique utilized.The dose-length product was 605.33 mGy-cm. FINDINGS: BRAIN PARENCHYMA AND CSF SPACES: Mild leukoaraiosis and diffuse cortical atrophy. Mild atheromatous d isease. No midline shift, mass effect or hemorrhage. The brain parenchyma and CSF spaces are otherwi se normal. VISUALIZED PARANASAL SINUSES: Well aerated. MASTOIDS: Minimal effusion in the right posterior mastoid air cells. Otherwise, Well aerated. BONES: The bones appear intact. SOFT TISSUES: Visualized nasopharynx is normal. Superficial soft tissues are normal. IMPRESSION: No acute intracranial findings. Reviewed, dictated and finalized at location A. [employer]
--- NOTE | ~2024-09-25 | CT_ITS ---
CT lumbar spine wo con Ordering provider: Sean Nazario MD History: 74 years Male with . FALL X2DAYS AGO,RT FLANK/LBP . Comparison: None. Technique: CT lumbar spine without contrast. Automated exposure control and iterative reconstruction technique were employed. The dose-length product was 910.71 mGy-cm. FINDINGS: VERTEBRAE: Chronic compression fractures are seen in T11, T12, L1 and L3. Otherwise, Normal height an d alignment. No subluxation or visible definite acute fracture. If still suspicious is MRI is advised . Postoperative changes seen at the disc L4-L5. Spondylolysis is seen bilaterally at the level of L4- L5 with minimal anterolisthesis. Right spondylolysis at the level of L5-S1. DISC SPACES: Numbering is based on Disc spacers seen the last vertebra is L5. Disc spacer seen at the level of L4-L5. Pseudoarthrosis seen in the right side at the level of L5-S1. T12-L1: No stenosis. L1-L2: Mild spinal canal stenosis secondary to broad based disc bulge, facet arthropathy, and ligame ntum flavum hypertrophy. Air bubble seen to the left in the spinal canal. This may be postinjection degenerative. Clinical correlation advised. Bilateral narrowing of the foramina. Root compression is highly suggestive bilaterally. L2-L3: Moderate spinal canal stenosis secondary to broad based disc bulge, facet arthropathy, and li gamentum flavum hypertrophy. Bilateral narrowing of the foramina. Compression is highly suggestive. L3-L4: No stenosis. Right facet joint disease. Diffuse disc bulge with bilateral narrowing of the for kranthi. No definite root compression. L4-L5: No stenosis. L5-S1: No stenosis. PARASPINOUS SOFT TISSUES: Mild atheromatous disease of the abdominal aorta. Right renal cyst. IMPRESSION: No acute osseous abnormality. Multiple chronic vertebral loss of height. If still suspicious MRI is advised. Multilevel spinal canal stenosis with intervertebral foraminal narrowing. MRI is better for evaluatio n. Reviewed, dictated and finalized at location A. CREW MEMBER IMPRESSION: No acute osseous abnormality. Multiple chronic vertebral loss of height. If still suspicious MRI is advised. Multilevel spinal canal stenosis with intervertebral foraminal narrowing. MRI i s better for evaluation.
[2024-09-25 07:59] VITALS: BP 148/78; PULSE 75; RESP 18; TEMP 36; O2SAT 97
--- NOTE | 2024-09-25 08:07 | ED_ITS ---
HPI - Fall General Chief Complaint: Fall Stated Complaint: fall Time Seen by Provider: 09/25/24 08:07 Source: patient Mode of arrival: ambulatory Limitations: no limitations History of Present Illness HPI Narrative: 74-year-old male with a history of hep C, emphysema, ex-smoker had a fall on 08/22/2024 and sustained left 4th to 6th rib fracture. He has had prior falls and had a healed left 7th rib fracture and a proximal left humerus fracture. The patient fell again 2 days ago and sustained -- head injury with left frontal hematoma. No loss of consciousness. No headache or vomiting. No neck pain. -- Right transverse process tenderness over the lumbar vertebrae. No pain on deep breathing. No shortness of breath. -- Traumatic blister over the spine of C7/T1. No ENT bleeding. No bruising/laceration. Onset (ago): day(s) ( Two days ago) Fall from: standing Fall witnessed: yes, by family Place fall occurred: home Loss of consciousness: none Prolonged down time: no Symptoms prior to fall: none Context: tripped/slipped Associated symptoms (after fall): other ( back pain, head injury, interscapular blister) Related Data Allergies Allergy/AdvReac Type Severity Reaction Status Date / Time diclofenac Allergy Intermediate Hives Verified 09/25/24 08:07 Sulfonamides Allergy Intermediate Hives Uncoded 08/26/24 12:12 Review of Systems Review of Systems: All systems reviewed & are unremarkable except as noted in HPI and below Constitutional: Constitutional: Reports as per HPI and Reports no additional constitutional complaints Eyes: Eyes: Reports as per HPI and Reports no additional eye complaints ENT: Reports system reviewed and no additional complaints, except as documented and Reports as per HPI Cardiovascular: Cardiovascular: Reports as per HPI and Reports no additional cardiovascular complaints Respiratory: Respiratory: Reports as per HPI and Reports no additional respiratory complaints Gastrointestinal: Gastrointestinal: Reports as per HPI and Reports no additional gastrointestinal complaints Genitourinary: Genitourinary: Reports no additional male genitourinary co mplaints and Reports as per HPI Musculoskeletal: Musculoskeletal: Reports no additional musculoskeletal complaints, Reports as per HPI and Reports back pain Comments: tenderness over the lower back Integumentary/Breasts: Skin/Breast: Reports system reviewed and no additional complaints, except as docu and Reports as per HPI Neurologic: Reports system reviewed and no additional complaints, except as documented and Reports as per HPI Psychiatric: Psychiatric: Reports no additional psychiatric complaints and Reports as per HPI Endocrine: Endocrine: Reports no additional endocrine complaints and Reports as per HPI Hematologic/Lymphatic: Hematologic/Lymphatic: Reports no additional hematologic/lymphatic complaints and Reports as per HPI Allergic/Immunologic: Allergic/Immunologic: Reports no additional allergic/immunologic complaints and Reports as per HPI [facility] Past Medical History Medical History Centrilobular emphysema (07/23/18) High prostate specific antigen (PSA) (01/16/18) Hx of hepatitis C Need for 23-polyvalent pneumococcal polysaccharide vaccine Surgical History Surgical History History of laparoscopic appendectomy 01/31/22 Hx of tonsillectomy Normal colonoscopy 08/16/2018 Status post left foot surgery Family History Family History Mother No problems noted. Sibling Throat cancer Other Family history of type 2 diabetes mellitus Social History Social History Smoking packs per day: 1 Smoking cigarettes per day: 20.0 Years smoked: 25 Smoking pack-years: 25.00 Smoking status: Former smoker Tobacco type: cigarettes Smoking end date: 09/30/19 Alcohol intake: current Alcohol use details: occasional Substance use: current Substance use type: marijuana Do You Feel Safe in your Home?: Yes Lack of Transportation: No Lack of Food: Never True Current Housing: I Have Housing Concerned About Future Housing: No Difficulty Paying Gas/Electric Bills: No Difficulty Paying for Meds: No Currently Unemployed: YES Education: High School Diploma/GED Difficulty w/ Childcare or Family Care: No Living arrangements: with family Additional living arrangements comments: Lives with . 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 Gender identity (if verbalized by the patient): Male Sexual Orientation (if Verbalized by the Patient): Straight or Heterosexual Spiritual care concerns: No Exam Const: General: healthy appearing, no acute distress and alert Nutritional Appearance: well nourished Orientation/consciousness: patient oriented x3 Limitations: no limitations HENMT: Head: normal to inspection Ears: external ears normal Face/Nose/Sinus: Normal external nose present Face and sinus: normal facial exam Mouth: Yes Normal oral and palatal mucosa present Throat: posterior oropharynx normal Eyes: Conjunctivae: conjunctivae normal Pupils: Equal, round and reactive pupils present EOM: EOMs intact bilaterally Direct Ophthalmoscopy: no photophobia Neck: Neck: normal visual inspection, no lymphadenopathy and no meningeal signs Other: no spinal tenderness. Normal range of motion. Chest: Chest palpation & inspection: normal inspection of the chest Other: no chest wall tenderness Resp: Effort & Inspection: normal respiratory effort Auscultation: clear to auscultation bilaterally Cardio: Rate: regular rate Rhythm: regular rhythm GI: Auscultation: normal bowel sounds Other: No tenderness/rigidity / rebound. Back/Spine/Pelvis: Back: no CVA tenderness Other: tenderness over the transverse processes of the right lumbar vertebrae. Skin: General skin exam: normal color Other: Traumatic blister over the C7 vertebral spine Neuro: General: patient oriented x3, moves all extremities, no meningeal signs, no focal motor deficits and CN's II-XI intact bilaterally Cranial nerves: Yes Nystagmus not present Speech: normal speech Extrem: General: normal to inspection and no clubbing, cyanosis or edema Psych: Mental Status: mental status grossly normal Affect: normal affect Attitude: cooperative Course Course Emergency Course: Accidental fall head injury- CT of the head did not show any acute findings. right flank pain- CT of the lumbar spine revealed compression fractures of T11, T12, L1, L3, status post surgery at L4/5, spinal stenosis and foraminal stenosis without any acute findings Vital Signs Vital signs: Vital Signs Temperature 36.0 C L 09/25/24 07:59 Pulse Rate 75 09/25/24 07:59 Respiratory Rate 18 09/25/24 07:59 Blood Pressure 148/78 H 09/25/24 07:59 Pulse Oximetry 97 09/25/24 07:59 Oxygen Delivery Room Air 09/25/24 07:59 Temperature 36.0 C L 09/25/24 07:59 Pulse Rate 62 09/25/24 10:00 Respiratory Rate 16 09/25/24 10:00 Blood Pressure 120/72 09/25/24 10:00 Pulse Oximetry 98 09/25/24 10:00 Oxygen Delivery Room Air 09/25/24 10:00 MDM - Fall MDM Narrative Medical decision making narrative: accidental fall chronic low back pain head injury Differential Diagnosis Differential diagnosis: Likely concussion without loss of consciousness Medical Records Attestation: I reviewed the patient's medical records. Discharge Plan Discharge Clinical Impression: Accidental fall Qualifiers: Encounter type: initial encounter Qualified Code(s): W19.XXXA - Unspecified fall, initial encounter Head injury Qualifiers: Encounter type: initial encounter Qualified Code(s): S09.90XA - Unspecified injury of head, initial encounter Low back pain Qualifiers: Chronicity: acute Back pain laterality: right Sciatica presence: without sciatica Qualified Code(s): M54.50 - Low back pain, unspecified Patient Disposition: Home, Self-Care Condition: Stable Instructions: Antibiotic Form, Acute Low Back Pain (ED), Fall Prevention (ED) Patient Language: Nepali Prescriptions: No Action oxycodone-acetaminophen [Percocet] 5-325 mg tablet 1 tablet PO Q6H PRN (Reason: pain) Qty: 20 0RF lisinopril 20 mg tablet See Rx Instructions .ROUTE .COMPLEX Qty: 90 0RF Dose Instruction: TAKE 1 TABLET BY MOUTH EVERY DAY Rx Instructions: TAKE 1 TABLET BY MOUTH EVERY DAY sertraline 100 mg tablet See Rx Instructions .ROUTE .COMPLEX Qty: 90 0RF Dose Instruction: TAKE 1 TABLET BY MOUTH EVERY DAY Rx Instructions: TAKE 1 TABLET BY MOUTH EVERY DAY Follow-up/Referrals: Jason Aparicio DO [Primary Care Provider] - Time of Disposition: 09:29
--- NOTE | 2024-09-25 09:02 | PC.NURSE ---
PT HAS RETURNED FROM RADIOLOGY, IS LYING ON STRETCHER WITH AT BEDSIDE. PT DENIES ANY NEEDS OR COMPLAINTS. WILL CONTINUE TO MONITOR.
[2024-09-25 09:16] VITALS: BP 134/67; O2SAT 95
[2024-09-25 09:31] VITALS: BP 132/61; O2SAT 96
[2024-09-25] MEDS: ONDANSETRON HCL ODT 4 MG TABLET PO (09:42)
[2024-09-25] MEDS: HYDROmorphone HCL INJ (*CRX) 2 MG/ML VIAL 0.5 MG IM (09:43)
[2024-09-25 10:00] VITALS: BP 120/72; PULSE 62; RESP 16; O2SAT 98
== END 2024-09-25 10:00 | disposition home or self-care (01) ==
PROVIDERS: Emergency Provider Internal Medicine Critical Care Medicine; PCP Family Medicine
DX: S00.93XA Contusion of unspecified part of head, initial encounter (principal); M54.50 Low back pain, unspecified; J43.9 Emphysema, unspecified; Z87.891 Personal history of nicotine dependence; W19.XXXA Unspecified fall, initial encounter
CPT/HCPCS: 70450; 72131; 96372; 99284; A9270; J1171

== ENCOUNTER 2024-11-22 10:37 | Outpatient (RCR) | payer MEDICARE, SELFPAY ==
--- NOTE | 2024-11-22 11:50 | OPREHPOC ---
Outpatient Therapy Plan of Care This is a Multidisciplinary Plan of Care that may contain components documented by all disciplines (PT, OT, and ST.) PT Problem 1 PT Problem #1 Knowledge Deficit PT Goal 1 Goal / Goal Update 1. independent and compliant with HEP Target Visit 6 PT Problem 2 PT Problem #2 Impaired Strength PT Goal 1 Goal / Goal Update 1. improve bilateral hip strength in sitting to 5/ 5 2. improve bilateral knee strength to 5/5 3. bilateral ankle DF to 5/5 Target Visit 12 PT Problem 3 PT Problem #3 Impaired Balance PT Goal 1 Goal / Goal Update 1. tinetti to display low fall risk 2. MACHADO to display a raw score of 41 or higher to be a low fall risk 3. 5x sit to stand to be completed in under 12 seconds Target Visit 12 PT Problem 4 PT Problem #4 Impaired Functional Mobility PT Goal 1 Goal / Goal Update 1. no falls while a patient of PT Target Visit 12
--- NOTE | 2024-11-22 11:50 | PTOPEVAL1 ---
Assessment and note entered by JT File, PT Evaluation Information Assessment Status Evaluation ICD-10 Condition Codes (PT) Repeated falls R29.6 Onset 10/01/24 Subjective Information patient reports back in august he fell off a stool trimming a tree, and then just a few weeks ago he was changing an outlet standing on a chair and fell. he reports no falls since this incident. he reports he gets nervous when he is standing on the stool and chair, but reports he is too stubborn to ask for help. Reported Pain Level Pain Score 0: Self Report Assessment PT Clinical Summary mr. cisneros presents to skilled PT services for evaluation and treatment of frequent falls. he has had 2 falls in the last 6 months. he displays a moderate fall risk per the tinetti and MACHADO today. he is especially unsteady with tandem stance, stepping on step, single leg stance, and eyes closed balance. he would benefit from continued skilled PT to address his objective/functional deficits to improve his balance and decrease fall risk/injury to self. Plan of Care Interventions Gait Training,Neuro Re-education,Patient/Caregiver Education,Therapeutic Activities,Therapeutic Exercise PT Services Indicated Yes Treatment Frequency and 3x weekly for 12 visits Duration These treatments will address the objective and functional deficits as defined above. The patient will be advanced safely and appropriately in order for the patient to progress towards his/her prior level of function. Additional exercises will be introduced and as well as a comprehensive home exercise program upon discharge, if needed, ?to ensure carryover of functional gains achieved in the clinic. This treatment plan has been reviewed and agreement upon by the patient.
--- NOTE | 2024-11-25 08:07 | PCPTNOTE ---
Patient called & cancelled scheduled appointment this date due to illness.
--- NOTE | 2024-12-09 15:57 | PCPTNOTE ---
Patient did not show up for scheduled appointment this date.
--- NOTE | 2024-12-16 07:56 | PCPTNOTE ---
pt no show/contacted patient and he states he overslept and will be in on mon.
--- NOTE | 2024-12-23 17:30 | PCPTNOTE ---
Patient called & cancelled scheduled appointment this date due to illness.
--- NOTE | 2025-01-17 08:00 | OPREHPOC ---
Outpatient Therapy Plan of Care This is a Multidisciplinary Plan of Care that may contain components documented by all disciplines (PT, OT, and ST.) PT Problem 1 PT Problem #1 Knowledge Deficit PT Goal 1 Goal / Goal Update 1. independent and compliant with HEP Target Visit 6 Progress Met PT Problem 2 PT Problem #2 Impaired Strength PT Goal 1 Goal / Goal Update 1. improve bilateral hip strength in sitting to 5/ 5 2. improve bilateral knee strength to 5/5 3. bilateral ankle DF to 5/5 Target Visit 12 PT Goal 2 Goal / Goal Update progress PT Problem 3 PT Problem #3 Impaired Balance PT Goal 1 Goal / Goal Update 1. tinetti to display low fall risk 2. MACHADO to display a raw score of 41 or higher to be a low fall risk 3. 5x sit to stand to be completed in under 12 seconds Target Visit 12 PT Goal 2 Goal / Goal Update progress PT Problem 4 PT Problem #4 Impaired Functional Mobility PT Goal 1 Goal / Goal Update 1. no falls while a patient of PT Target Visit 12 Progress Met
--- NOTE | 2025-01-17 08:00 | PTOPPROGNS ---
Assessment and note entered by JT File, PT Evaluation Information Assessment Status Progress ICD-10 Condition Codes (PT) Repeated falls R29.6 Onset 10/01/24 Subjective Information patient reports feeling his balance and strength have improved. he has no pain today, but at times the lower back will still flare up on him quite significantly. Assessment PT Clinical Summary mr. cisneros presents to skilled PT for his 10th skilled therapy visit. as of this date, he displays improvements in LE strength, balance, and subjective safety. he continues to lack achievement of goals in several areas, and would benefit from continued skilled PT to address his remaining objective/functional deficits to achieve these goals. Plan of Care Interventions Gait Training,Neuro Re-education,Patient/Caregiver Education,Therapeutic Activities,Therapeutic Exercise PT Services Indicated Yes Treatment Frequency and continue per initial POC Duration These treatments will address the objective and functional deficits as defined above. The patient will be advanced safely and appropriately in order for the patient to progress towards his/her prior level of function. Additional exercises will be introduced and as well as a comprehensive home exercise program upon discharge, if needed, ?to ensure carryover of functional gains achieved in the clinic. This treatment plan has been reviewed and agreement upon by the patient.
== END 2024-12-20 20:00 | disposition home or self-care (01) ==
LOC: CHSPT 10:37
PROVIDERS: Visit Provider Family Medicine
DX: R29.6 Repeated falls (principal)
CPT/HCPCS: 97110; 97112; 97161; 97530

== ENCOUNTER 2025-03-06 09:18 | Outpatient (CLI) | payer MEDICARE, OTHER, SELFPAY ==
--- OUTSIDE RECORDS SUMMARY | 2025-03-06 09:44 | XMS_ITS | Clinical Summary ---
Author Organization [facility] Address [address] [place] [address] Care Team Providers Care Walking Dragline Oiler Name Role Phone Rl Tee MD Primary Care Provider [phone] Rosmery Grant TYPING OFFICE WORKER Unavailable [phone] Michael Gerardo MD Unavailable [phone] Allergies Active Allergy Reactions Criticality Noted Date Comments Diclofenac Potassium(Migraine) Hives 07/24 Sulfa Antibiotics Unknown 07/24/2018 Medications aspirin EC (ASPIRIN) 81 MG EC tablet Take 81 mg by mouth daily. Active Active Problems Problem Noted Date Diagnosed Date Atherosclerosis of aorta 07/27/2018 Chronic hepatitis ([facility]/HCC [facility]) 07/27/2018 Depression 07/27/2018 Chest pain 07/27/2018 Family History Medical History Relation Comments Brain Aneurysm Father Type II Diabetes Mother Relation Status Comments Brother Father Mother Social History Tobacco Use Types Packs/Day Years Used Date Smoking Tobacco: Former Cigarettes Alcohol Use Standard Drinks/Week Comments Yes 0 (1 standard drink = 0.6 oz pur e alcohol) 2-3 times a wek Sex and Gender Information Value Date Recorded Sex Assigned at Not on file Legal Sex Male 8:40 AM CDT Gender Identity Not on file Sexual Orientation Not on file Occupation Industry Job Start Date Job End Date Retired Not on file Not on file Not on file Last Filed Vital Signs Vital Sign Reading Time Taken Comments Blood Pressure 168/78 04/16/2020 2:21 PM CDT Pulse 79 04/16/2020 2:21 PM CDT Temperature 36.6 C (97.9 F) 04/16/2020 2:21 PM CDT Respiratory Rate 18 04/16/2020 2:21 PM CDT Oxygen Saturation 97% 04/16/2020 2:21 PM CDT Inhaled Oxygen Concentration - - Weight 88.9 kg (196 lb) 04/16/2020 2:21 PM CDT Height 182.9 cm (6') 04/16/2020 2:21 PM CDT Body Mass Index 26.58 04/16/2020 2:21 PM CDT Plan of Treatment Health Maintenance Due Date Last Done Comments ASCVD LDL 1950 ASCVD Statin 1950 Colorectal Cancer Screening Colonoscopy (10 Years) 1950 Hepatitis C 1968 DTaP, Tdap and Td Vaccines ( 1 - Tdap) 1969 Pneumococcal Vaccine: 50+ Ye ars (1 of 2 - PCV) 1969 Zoster Vaccines (1 of 2) 2000 RSV Immunization or 60+ Years (1 - Risk 60-74 years 1-dose series) 2010 Annual Medicare Wellness Visit 2015 COVID-19 Vaccine ( - 2023-2 5 season) 2024 Meningococcal B Vaccine Aged Out No l onger eligible based on patient's age to complete this topic Meningococcal Vaccine Aged Out No dmitriy vinicio eligible based on patient's age to complete this topic RSV Immunizations Under 20 Months Aged Out No longer eligible based on patient's age to complete this topic Insurance MEDICARE [employer] Care Teams Walking Dragline Oiler Relationship Specialty Start Date End Date Rl Tee MD [address] [place] [address] PCP - General FAMILY PRACTICE 07/24/18 Rosmery Grant FNP [address] [place] [address] NURSE PRACTITIONER 07/24/18 Michael Gerardo MD [address] [place] [address] [place] Public Health Technologist CARDIOVASCULAR DISEASE 07/24/18
--- NOTE | 2025-03-06 09:50 | ECG_ITS ---
Test Date: 2025-03-06 10:13:16 Measurements Intervals Carney Rate: 70 P: 44 MA: 159 QRS: 67 QRSD: 83 T: 76 QT: 412 QTc: 446 Interpretive Statements SINUS RHYTHM No previous ECG available for comparison Electronically Signed On 03-08-2025 11:48:10 CDT by Patrick Boone M.D.
[2025-03-07 01:54] LABS: Anion Gap 7 mmol/L (4-12); Blood Urea Nitrogen 29 mg/dL (7-18); Carbon Dioxide 31 mmol/L (21-32); Chloride 103 mmol/L (98-108); Estimated Glomerular Filt Rate > 60; Glucose 98 mg/dL (70-99); Osmolality Calculated 297 mOsm/kg (285-295); Potassium 4.8 mmol/L (3.5-5.1); Sodium 141 mmol/L (136-145)
== END 2025-03-06 09:19 | disposition home or self-care (01) ==
PROVIDERS: Podiatrist Foot & Ankle Surgery; PCP Family Medicine; Visit Provider Nurse Anesthetist, Certified Registered
DX: Z01.818 Encounter for other preprocedural examination (principal)
CPT/HCPCS: 36415; 80048; 93005

== ENCOUNTER 2025-03-12 12:19 | Outpatient (CLI) | payer MEDICARE, OTHER, SELFPAY ==
--- OUTSIDE RECORDS SUMMARY | 2025-03-12 12:32 | XMS_ITS | Clinical Summary ---
Author Organization [facility] Address [address] [place] [address] Care Team Providers Care Chronometer Assembler And Adjuster Name Role Phone Rl Tee MD Primary Care Provider [phone] Rosmery Grant AIR BRAKE MAN Unavailable [phone] Michael Gerardo MD Unavailable [phone] Allergies Active Allergy Reactions Criticality Noted Date Comments Diclofenac Potassium(Migraine) Hives 07/24 Sulfa Antibiotics Unknown 07/24/2018 Medications aspirin EC (ASPIRIN) 81 MG EC tablet Take 81 mg by mouth daily. Active Active Problems Problem Noted Date Diagnosed Date Atherosclerosis of aorta 07/27/2018 Chronic hepatitis ([facility]) 07/27/2018 Depression 07/27/2018 Chest pain 07/27/2018 Family [...] [employer] Care Teams Chronometer Assembler And Adjuster Relationship Specialty Start Date End Date Rl Tee MD [address] [place] [address] PCP - General FAMILY PRACTICE 07/24/18 Rosmery Grant FNP [address] [place] [address] NURSE PRACTITIONER 07/24/18 Michael Gerardo MD [address] [place] [address] [place] Accounting Director CARDIOVASCULAR DISEASE 07/24/18
--- OUTSIDE RECORDS SUMMARY | 2025-03-12 12:32 | XMS_ITS | Continuity of Care Document ---
Author Organization [facility] Address [address] [place] [address] Phone Care Team Providers Care Software Packaging Engineer Name Role Phone Shaw Martins MD Unavailable Unavailable Allergies, Adverse Reactions, Alerts Substance Reaction Status Criticality No Known Allergies Active No Inform ation Medications Medication Instructions Dosage Effective Dates (start - stop) Status Comments BUMETANIDE (unknown strength) Not Available - Active AMLODIPINE BESYLATE (unknown strength) Not Available - Active SPIRONOLACTONE (unknown strength) Not Available - Active ANORO ELLIPTA (unknown strength) Not Available - Active ASPIRIN EC (unknown strength) Not Available - Active ATORVASTATIN CALCIUM (unknown strength) Not Available - Active QTERN (unknown strength) Not Available - A ctive FUROSEMIDE (unknown strength) Not Available - Active JARDIANCE (unknown strength) Not Available - Active METOPROLOL TARTRATE (unknown strength) Not Available - Active XARELTO (unknown strength) Not Available - Active TRAZODONE HCL (unknown strength) Not Available - Active VALSARTAN (unknown strength) Not Available - Active VENTOLIN HFA (unknown strength) Not Available - Active Procedures Procedure Date Scanning Comp Opth Dx Img Retina 2024 Offic/outpt E&m Estab Low-mod 5 Fluorescein Angiography W/i&r 5 Scanning Comp Opth Dx Img Retina 2024 Ophth Serv: Med Exam; Interm E 25 Fluorescein Angiography W/i&r 4 Scanning Comp Opth Dx Img Retina 2023 Ophth Extended W/Retinal Drawing 2023 Offic/outpt E&m New Mod-sd 45 4 Advance Directives Directive Yes / No Effective Date File Name No Information Encounters Encounter Description Practice Location Reason(s) For Visit Diagnoses Date Provider Providers Copied on Encounter Offic/outpt E&m Estab Low-mod [facility] [employer] s, [address], [place], [address], [place] tel: [phone] [facility] blurry vision (chief complaint) Tributary (branch) retinal vein occlusion, right eye, stableVitreous degeneration, bilateralHyperten sionPrediabetes 5 Eliezer Squires. [address], [address], [place], [id number] , [place]. tel:[phone] Ref[place]: [place], [address] [facility]. [facility] [place], [address]. tel:[phone] [facility] Price s, [address], [place], [address], [place] tel: [phone] [facility] blurry vision (chief complaint) Tributary (branch) retinal vein occlusion, right eye, stableVitreous degeneration, bilateralHyperten floyd 5 Lequirekurtis Squires. [address], [address], [place], [id number] , [place]. tel: [phone] Referring [place], [address] [facility]. [facility] [place], [address]. tel:[phone] Offic/outpt E&m [facility] Mod-hi 45 Vivian Price s, [address], [place], [address], [place] tel: [phone] [facility] 3rd Floor blurry vision (chief complaint) PrediabetesVitreo us degeneration, bilateralPersonal history of other malignant neoplasm of bronchus and lungTributary (branch) retinal vein occlusion, right eye, stable Dec-0 4 Eliezerkurtis Squires. [address], [address], [place], [id number] , [place]. tel:[phone] Referring [place]: [place], [address] [facility]. [facility] Physicians [facility], [place], [address]. tel:[phone] Family History Family Member Type Diagnosis Age At Onset No Information Payers Payer name Insurance type Covered green party ID Authoriza tion(s) Medicare MB [id number] BCBS (Other Plan) [id number] Social History Type Description Quantity Date Captured Comments Alcohol Use Details Unknown Caffeine Use Details Unknown Tobacco Use Status No Information Smoking Status Former smoker Sex Male Chief Complaint And Reason For Visit From encounter dated '03/04/2025 06:55'. blurry vision (chief complaint). Description: The 74 year old patient presents for blurry vision inthe right eye and left eye. It started about 3 months ago. It occurs with no pattern. The onset wasgradual. It affects both near and far vision. The symptom is intermittent. The condition is stable.He states blotch in his OD. It started 4-5 days ago. Blotch has OS has cleared up. No flashes of lig ht or floaters. Reason For Referral Reason For Referral No Information Plan Of Treatment Date Type Action Status Goal Tobacco cessation counseling completed History Of Present Illness Encounter Date Complaint History Of Prese nt Illness blurry vision The 74 year old patient presents for blurry vision in the right eye and left eye. It started about 3 months ago. It occurs with no pattern. The onset was gradual. It affects both near and far vision. The symptom is intermittent. The condition is stable. He states blotch in his OD. It started 4-5 days ago. Blotch has OS has cleared up. No flashes of light or floaters. blurry vision The 74 year old patient presents for a followup of blurry vision in the right eye and left eye. It started several months ago. It occurs with no pattern. The onset was gradual. It affects both near and far vision. The symptom is intermittent. Pt said when he close his left eye he wont see sharp with the right eye. Pt said his right eye jacqueline vision and see some blotches The condition is stable. Patient denies flashes, floaters. blurry vision The 74 year old patient presents for evaluation of blurry vision in the right eye. It started about 3 day(s) ago. It occurs with no pattern. The onset was sudden. It affects both near and far vision. The symptom is frequent. The condition is severe. He says whenever he covers his left eye he can not see anything out of the right eye, he says it looks like an ink blot test . He is considered prediabetic and was recently started on medication because his glucose level was slightly elevated. He recently finished chemo for lung cancer. Functional Status Date Functional Assessmen t No Information Instructions Date Instruction Additional Infor matamerico Return in [address] Martins for DFE follow-up, OCT (Macula). Related to Tributary (branch) retinal vein occlusion, right eye, stable Impression/Plan Related to Predi abetes Impression/Plan Related to Tribu tary (branch) retinal vein occlusion, right eye, stable Impression/Plan Related to Vitre ous degeneration, bilateral Impression/Plan Related to Hyper tension Return in [address] Martins for DFE follow-up, OCT (Macula). Related to Tributary (branch) retinal vein occlusion, right eye, stable Impression/Plan Related to Tribu tary (branch) retinal vein occlusion, right eye, stable Impression/Plan Related to Vitre ous degeneration, bilateral Impression/Plan Related to Hyper tension Impression/Plan Related to Predi abetes Impression/Plan Related to Vitre ous degeneration, bilateral Impression/Plan Related to Perso nal history of other malignant neoplasm of bronchus and lung Impression/Plan Related to Tribu tary (branch) retinal vein occlusion, right eye, stable Assessments Type Assessment Date assessment Tributary (branch) retinal vein occlusion, right eye, stable assessment Vitreous degeneration, bilateral assessment Hypertension assessment Prediabetes impression Tributary (branch) r etinal vein occlusion, right eye, stable: H34.8312. Status: Chronic.Minimal venous tortuosity, improved impression Vitreous degeneration, bilateral : H43.813. Status: Chronic impression Hypertension: I10 impression Prediabetes: R73.03 Patient Care Teams Name Effective Dates (start - stop) Status Members No Information
[2025-03-12 12:35] LABS: Basophils Absolute Auto 0.05 K/mm3 (0.00-0.10); Basophils Percent Auto 0.8 % (0.0-1.0); Eosinophils Absolute Auto 0.16 K/mm3 (0.02-0.50); Eosinophils Percent Auto 2.6 % (1.0-6.0); Hematocrit 43.4 % (37.0-46.0); Immature Granulocyte Absolute 0.02 K/mm3 (0.00-0.00); Immature Granulocyte Percent A 0.3 % (0.0-0.0); Lymphocytes Absolute Auto 2.18 K/mm3 (1.10-4.50); Lymphocytes Percent Auto 34.8 % (18.0-42.0); Mean Corpuscular HGB Conc 32.3 g/dL (32-36); Mean Corpuscular Hemoglobin 31.1 pg (27.0-31.0); Mean Corpuscular Volume 96.4 fL (78.0-102.0); Mean Platelet Volume 10.8 fl (8.7-11.0); Monocytes Absolute Auto 0.63 K/mm3 (0.10-0.90); Monocytes Percent Auto 10.1 % (2.0-11.0); Neutrophils Absolute Auto 3.22 K/mm3 (1.70-7.20); Neutrophils Percent Auto 51.4 % (50.0-70.0); Platelet Count Result 226 K/mm3 (150-420); Red Cell Distribution Width 13.5 % (11.6-14.4); White Blood Count 6.3 K/mm3 (4.8-10.8)
[2025-03-12 12:50] LABS: Add Urine Microscopic? NO; Appearance Urine Clear (Clear); Bilirubin Urine Negative (Negative); Blood Urine Negative (Negative); Color Urine Light Yellow (Yellow); Glucose Urine UA Negative (Negative); Ketones Urine Negative (Negative); Leukocyte Esterase Ur Negative LEU/UL (Negative); Nitrate Urine Negative (Negative); Protein Urine Negative (Negative); Specific Grav Ur 1.025 (1.010-1.020); Urobilinogen Urine 0.2 mg/dL (0.2-1.0)
[2025-03-12 13:56] LABS: Iron 147 ug/dL (65-175); Percent Iron Saturation 53 % (12-57); Prostate Specific Antigen 6.3 ng/mL (< OR = 4.0)
[2025-03-12 15:14] LABS: Alanine Aminotransferase 16 U/L (6-50); Albumin Level 4.7 g/dL (3.5-5.1); Alkaline Phosphatase 82 U/L (38-126); Anion Gap 7 mmol/L (4-12); Aspartate Amino Transferase 28 U/L (17-59); Blood Urea Nitrogen 34 mg/dL (9-20); Calcium 9.1 mg/dL (8.4-10.2); Carbon Dioxide 25 mmol/L (22-30); Chloride 107 mmol/L (98-107); Cholesterol 182 mg/dL (0-200); Estimated Glomerular Filt Rate > 60; Glucose 109 mg/dL (65-110); HDL Direct 52 mg/dL; LDL Cholesterol Calculated 117 mg/dL (<130); Osmolality Calculated 296 mOsm/kg (285-295); Potassium 5.3 mmol/L (3.4-5.0); Sodium 139 mmol/L (137-145); Total Protein 7.6 g/dL (6.3-8.2); Triglycerides 63 mg/dL (<150)
== END 2025-03-12 12:20 | disposition home or self-care (01) ==
LOC: CHSLAB 12:20
PROVIDERS: PCP Nurse Practitioner Family; Visit Provider Nurse Practitioner Family
DX: R42 Dizziness and giddiness (principal); I10 Essential (primary) hypertension; R97.20 Elevated prostate specific antigen [PSA]; Z12.5 Encounter for screening for malignant neoplasm of prostate; R35.1 Nocturia; R79.9 Abnormal finding of blood chemistry, unspecified; D64.9 Anemia, unspecified
CPT/HCPCS: 36415; 80053; 80061; 81003; 83540; 83550; 84153; 85025; G0103

== ENCOUNTER 2025-03-19 11:32 | Outpatient (CLI) | payer MEDICARE, OTHER, SELFPAY ==
--- OUTSIDE RECORDS SUMMARY | 2025-03-19 11:38 | XMS_ITS | Continuity of Care Document ---
Author Organization [facility] Address [address] [facility] [place] [address] Phone Care Team Providers Care Welfare Worker Name Role Phone Shaw Martins MD Unavailable [...] Extended W/Retinal Drawing 2023 Offic/outpt E&m New Mod-de 45 4 Advance Directives Directive Yes / No Effective Date File Name No Information Encounters Encounter Description Practice Location Reason(s) For Visit Diagnoses Date Provider Providers Copied on Encounter Offic/outpt E&m Estab Low-mod [facility] [employer] Supervisor s, [address] [facility], [place], [address], [place] tel: [phone] [facility] blurry vision (chief complaint) Tributary (branch) retinal vein occlusion, right eye, stableVitreous degeneration, bilateralHyperten sionPrediabetes 5 Eliezer Squires. [address], [address], [place], [id number] , [place]. tel:[phone] [place]: [place], [address] [facility]. [place], [address]. tel:[phone] [facility] Price s, [address], [place], [address], [place] tel:[phone] [facility] blurry vision (chief complaint) Tributary (branch) retinal vein occlusion, right eye, stableVitreous degeneration, bilateralHyperten floyd 5 Turnerkurtis Squires. [address], [address], [place], [id number] , [place]. tel: [phone] Referring Provider: [place], [address] [facility]. [facility] [place], [address]. tel:[phone] Offic/outpt E&m [facility] Mod-hi 45 Vivian Price s, [address], [place], [address], [place] tel: [phone] [place] [facility] 3rd Floor blurry vision (chief complaint) PrediabetesVitreo us degeneration, bilateralPersonal history of other malignant neoplasm of bronchus and lungTributary (branch) retinal vein occlusion, right eye, stable Dec-0 4 Turnerkurtis Squires. [address], [address], [place], [id number] , [place]. tel:[phone] [place]: [place], [address] [facility]. [facility] Physicians [facility], [place], [address]. tel:[phone] Family History Family Member Type Diagnosis Age At Onset No Information Payers Payer name Insurance type Covered green party ID Authoriza tion(s) Medicare MB [id number] BCBS (Other Plan) [id number] Social History Type Description Quantity Date Captured [...]
--- OUTSIDE RECORDS SUMMARY | 2025-03-19 11:38 | XMS_ITS | Clinical Summary ---
Author Organization [facility] Address [address] [place] [address] Care Team Providers Care Continuity Tester Name Role Phone Rl Tee MD Primary Care Provider [phone] Rosmery Grant TOLL OPERATOR Unavailable [phone] Michael Gerardo MD Unavailable [phone] Allergies Active Allergy Reactions Criticality Noted Date Comments Diclofenac Potassium(Migraine) Hives 07/24 Sulfa Antibiotics Unknown 07/24/2018 Medications aspirin EC (ASPIRIN) 81 MG EC tablet Take 81 mg by mouth daily. Active Active Problems Problem Noted Date Diagnosed Date Atherosclerosis of aorta 07/27/2018 Chronic hepatitis ([facility]/H[facility]) 07/27/2018 Depression 07/27/2018 Chest pain 07/27/2018 Family [...] [employer] Care Teams Continuity Tester Relationship Specialty Start Date End Date Rl Tee MD [address] [place] [address] PCP - General FAMILY PRACTICE 07/24/18 Rosmery Grant FNP [address] [place] [address] NURSE PRACTITIONER 07/24/18 Michael Gerardo MD [address] [place] [address] [place] Filbert Grower CARDIOVASCULAR DISEASE 07/24/18
--- NOTE | 2025-03-19 11:45 | ECG_ITS ---
Test Date: 2025-03-19 11:59:38 Measurements Intervals [place] Rate: 92 P: 48 VT: 147 QRS: 70 QRSD: 90 T: 35 QT: 365 QTc: 453 Interpretive Statements SINUS RHYTHM ST DEPRESSIONS IN INFERIOR LEADS; CONSIDER ISCHEMIA Compared to ECG 03/06/2025 10:13:16 T-wave abnormality now present Electronically Signed On 03-20-2025 15:52:47 CDT by Rudolph Barr M.D.
[2025-03-19 12:09] LABS: Potassium 4.6 mmol/L (3.4-5.0)
== END 2025-03-19 11:33 | disposition home or self-care (01) ==
LOC: CHSLAB 11:34
PROVIDERS: PCP Nurse Practitioner Family; Visit Provider Nurse Practitioner Family
DX: E87.5 Hyperkalemia (principal); R94.31 Abnormal electrocardiogram [ECG] [EKG]
CPT/HCPCS: 36415; 84132; 93005

== ENCOUNTER 2025-04-03 07:40 | Outpatient (CLI) | payer MEDICARE, OTHER, SELFPAY ==
--- NOTE | ~2025-04-03 | MR_ITS ---
EXAMINATION: MR brain/brain stem wo con DATE: 04/03/2025 08:20 INDICATION: Dizziness and giddiness TECHNIQUE: Magnetic resonance imaging (MRI) of the brain and brainstem was performed without intraven ous contrast. Sequences included sagittal and axial T1-weighted SE, axial diffusion-weighted FS SE, a xial T2*-weighted GRE, axial T2-weighted FLAIR, and axial T2-weighted FSE. Apparent diffusion coeffic ient (ADC) maps were created. COMPARISON: Head CT dated 09/25/2024 FINDINGS: There are no areas of restricted diffusion to suggest acute infarction. No intracranial hemorrhage or abnormal intracranial mass lesion. There are no intraparenchymal signal abnormalities seen on the ot her pulse sequences. The ventricles are symmetric and normal in size. There are no abnormal extra-axi al fluid collections. Flow voids are seen in the cerebral arteries on the T2-weighted sequences consi stent with their expected patency. Mild mucoperiosteal thickening at the ethmoid sinuses. Visualized orbits and soft tissues are unremarkable. IMPRESSION: 1. Normal for age brain. No acute intracranial process. Reviewed, dictated and finalized at location A.
[2025-04-03 09:32] LABS: NT Pro B Type Natriuretic Pept 151 pg/mL (19.9-100)
== END 2025-04-03 07:41 | disposition home or self-care (01) ==
PROVIDERS: PCP Nurse Practitioner Family; Visit Provider Nurse Practitioner Family
DX: R42 Dizziness and giddiness (principal); R94.31 Abnormal electrocardiogram [ECG] [EKG]; I50.9 Heart failure, unspecified
CPT/HCPCS: 36415; 70551; 83880

== ENCOUNTER 2025-05-13 10:17 | Outpatient (CLI) | payer MEDICARE, OTHER, SELFPAY ==
--- NOTE | 2025-05-13 10:22 | ECHO_ITS ---
Patient Info Name: Michael Chawla Age: 74 years : 1950 Gender: Male Ht: 72 in Wt: 175 lbs BSA: 2.01 m2 HR: 79 bpm BP: 145 / 69 mmHg Technical Quality: Good Exam Date: 05/13/2025 10:25 AM Patient Status: O Admit Date: 05/13/2025 Exam Type: CA echo doppler color flow Complete two-dimensional, color flow and Doppler transthoracic echocardiogram is performed. Tobacco Prizer: Marti Booker Attending Provider: Anthony Schmid DO Summary 1. Complete two-dimensional, color flow and Doppler transthoracic echocardiogram is performed. 2. Left ventricular chamber dimension is normal. 3. Left ventricular systolic function is normal, estimated at 65-70. 4. There is mild concentric increased left ventricular wall thickness. 5. The left ventricular diastolic function is grade I diastolic dysfunction. 6. E/e' 10 is mildly elevated. 7. Left atrial chamber dimension is mildly enlarged. 8. There is mild aortic valve sclerosis. 9. There is mild mitral valve regurgitation. 10. There is mild tricuspid valve regurgitation. 11. Mild pulmonary hypertension, estimated pulmonary arterial systolic pressure is 42 mmHg. 12. There is trace pulmonic regurgitation. Left Ventricle E/e' 10 is mildly elevated. Left ventricular chamber dimension is normal. Left ventricular systolic function is normal, estimated at 65-70. There is mild concentric increased left ventricular wall thickness. The left ventricular diastolic function is grade I diastolic dysfunction. Right Ventricle Right ventricular chamber dimension is normal. Right ventricular systolic function is normal and with normal TAPSE 2.8 cm. Left Atria Left atrial chamber dimension is mildly enlarged. Right Atria Right atrial chamber dimension is normal. Aortic Valve The aortic valve is trileaflet. There is mild aortic valve sclerosis. There is no aortic valve stenosis. There is no aortic valve regurgitation. Pulmonic Valve There is trace pulmonic regurgitation. Mitral Valve There is no mitral valve stenosis. There is mild mitral valve regurgitation. Tricuspid Valve There is mild tricuspid valve regurgitation. Mild pulmonary hypertension, estimated pulmonary arterial systolic pressure is 42 mmHg. Pericardium/Pleural There is no pericardial effusion. Inferior Vena Cava Normal inferior vena cava with >50% collapse upon inspiration consistent with normal right atrial pressure, 5 mmHg. Aorta The aortic root size at the sinus of Valsalva is normal. Left Ventricular Outflow Tract Name Value Normal LVOT 2D LVOT Diameter 1.9 cm LVOT Doppler LVOT Peak Velocity 149 cm/s LVOT Peak Gradient 9 mmHg LVOT Mean Gradient 5 mmHg LVOT VTI 32 cm LVOT VTI/AV VTI Ratio 0.9 LVOT Stroke Volume 88 ml LVOT CO 5.7 l/min LVOT CI 2.8 l/min/m2 Pulmonic Valve Name Value Normal PV Doppler PV Peak Velocity 112 cm/s PV Peak Gradient 5 mmHg Mitral Valve Name Value Normal MV Regurgitation Doppler MR Peak Gradient 121 mmHg MV Diastolic Function MV E Peak Velocity 88 cm/s MV A Peak Velocity 105 cm/s MV E/A 0.8 MV Decel Time (PW) 288 ms MV Annular TDI MV E/e' (Septal) 12.0 MV E/e' (Lateral) 9.4 MV E/e' (Average) 10.7 Tricuspid Valve Name Value Normal TV Regurgitation Doppler TR Peak Velocity 306 cm/s TR Peak Gradient 33 mmHg Estimated PAP/RSVP RA Pressure 5 mmHg <=5 PA Systolic Pressure 42 mmHg <36 RV Systolic Pressure 42 mmHg <36 TV Annular TDI TV Lateral Sara s' Velocity 15.2 cm/s >=9.5 Aortic Valve Name Value Normal AV Doppler AV Peak Velocity 160 cm/s AV Peak Gradient 10 mmHg AV Mean Gradient 6 mmHg AV VTI 34 cm AV Area (Cont Eq VTI) 2.6 cm2 >=3.0 AV Area (Cont Eq Naldo) 2.6 cm2 AV DI (Naldo) 0.93 AV Regurgitation 2D LVOT Area 2.8 cm2 Ventricles Name Value Normal LV Dimensions 2D/MM IVS Diastolic Thickness (2D) 1.3 cm 0.6-1.0 LVID Diastole (2D) 4.4 cm 4.2-5.8 LVIW Diastolic Thickness (2D) 1.0 cm 0.6-1.0 LVID Systole (2D) 3.0 cm 2.5-4.0 LVOT Diameter 1.9 cm LV Mass (2D Cubed) 181.85 g 88.00-224.00 LV Mass Index (2D Cubed) 90 g/m2 49-115 Relative Wall Thickness (2D) 0.46 <=0.42 LV Fractional Shortening/Ejection Fraction 2D/MM LV Fractional Shortening (2D) 32 % 25-43 LV EF (2D Teichholz) 60 % LV Diastolic Volume (4C MOD) 60 ml LV EF (4C MOD) 63 % LV Diastolic Volume (2C MOD) 44 ml LV EF (2C MOD) 60 % LV Diastolic Volume (BP MOD) 52 ml 62-150 LV Diastolic Volume Index (BP MOD) 26 ml/m2 34-74 LV Systolic Volume (BP MOD) 20 ml 21-61 LV Systolic Volume Index (BP MOD) 10 ml/m2 11-31 LV EF (BP MOD) 62 % 52-72 LV Diastolic Length (4C) 7.9 cm LV Systolic Length (4C) 6.5 cm LV Stroke Volume (4C MOD) 38 ml Atria Name Value Normal LA Dimensions LA Volume (4C A-L) 33 ml LA Volume (BP A-L) 40 ml RA Dimensions RA Systolic [place] Length (4C) 4.9 cm 2.1-2.7 RA Area (4C) 11.9 cm2 <=18.0 Report Signatures
--- OUTSIDE RECORDS SUMMARY | 2025-05-13 10:26 | XMS_ITS | Continuity of Care Document ---
Author Organization [facility] Address [address] [facility] [address] [place] [address] Phone Care Team Providers Care Classification Officer Name Role Phone Shaw Martins MD Unavailable [...] Extended W/Retinal Drawing 2023 Offic/outpt E&m New Mod-ga 45 4 Advance Directives Directive Yes / No Effective Date File Name No Information Encounters Encounter Description Practice Location Reason(s) For Visit Diagnoses Date Provider Providers Copied on Encounter Offic/outpt E&m Estab Low-mod [facility] Lithographed Plate Inspector s, [address], [place], [address], [place] tel: [phone] [facility] (chief complaint) Tributary (branch) retinal vein occlusion, right eye, stableVitreous degeneration, bilateralHyperten sionPrediabetes 5 Eliezer Squires. [address], [address], [place], [id number] , [place]. tel:[phone] [place]: [place], [address] [facility]. [place], [address]. tel:[phone] [facility], [address], [place], [address], [place] tel:[phone] [facility]urry vision (chief complaint) Tributary (branch) retinal vein occlusion, right eye, stableVitreous degeneration, bilateralHyperten floyd 5 [place] Squ[facility]. [address], [address], [place], [id number] , [place]. tel: [phone] Ref[place], [address] [facility]. [facility] [place], [address]. tel:[phone] Offic/outpt E&m [facility] Mod-hi 45 [facility] Price s, [address], [place], [address], [place] tel: [phone] [facility] 3[facility] Floor blurry vision (chief complaint) PrediabetesVitreo us degeneration, bilateralPersonal history of other malignant neoplasm of bronchus and lungTributary (branch) retinal vein occlusion, right eye, stable Dec-0 4 [place] Squires. [address] [facility] [address], [address], [place], [id number] , [place]. tel:[phone] Ref[place]: [place], [address] [facility]. [facility], [place], [address]. tel:[phone] Family History Family Member Type Diagnosis Age At Onset No Information Payers Payer name Insurance type Covered constitution party ID Authoriza tion(s) Medicare MB [id number] BCBS (Other Plan) [id number] Social History Type Description Quantity Date Captured [...] says it looks like an ink blot test. He is considered prediabetic and was recently [...]
--- OUTSIDE RECORDS SUMMARY | 2025-05-13 10:26 | XMS_ITS | Clinical Summary ---
Author Organization [facility] Address [address] [place] [address] Care Team Providers Care Bin Operator Name Role Phone Rl Tee MD Primary Care Provider [phone] Rosmery Grant KNITTING TEACHER Unavailable [phone] Michael Gerardo MD Unavailable [phone] Allergies Active Allergy Reactions Criticality Noted Date Comments Diclofenac Potassium(Migraine) Hives 07/24 Sulfa Antibiotics Unknown 07/24/2018 Medications aspirin EC (ASPIRIN) 81 MG EC tablet Take 81 mg by mouth daily. Active Active Problems Problem Noted Date Diagnosed Date Atherosclerosis of aorta 07/27/2018 Chronic hepatitis ([facility]/HCC [facility]) 07/27/2018 Depression 07/27/2018 Chest pain 07/27/2018 Family [...] [employer] Care Teams Bin Operator Relationship Specialty Start Date End Date Rl Tee MD [address] [place] [address] PCP - General FAMILY PRACTICE 07/24/18 Rosmery Grant FNP [address] [place] [address] NURSE PRACTITIONER 07/24/18 Michael Gerardo MD [address] [place] [address] [place] [employer]ag[employer] Gatherer CARDIOVASCULAR DISEASE 07/24/18
== END 2025-05-13 10:18 | disposition home or self-care (01) ==
PROVIDERS: PCP Nurse Practitioner Family; Visit Provider Internal Medicine Cardiovascular Disease
DX: I35.8 Other nonrheumatic aortic valve disorders (principal); I08.3 Combined rheumatic disorders of mitral, aortic and tricuspid valves; I27.20 Pulmonary hypertension, unspecified
CPT/HCPCS: 93306

== ENCOUNTER 2025-08-11 08:05 | Outpatient (CLI) | payer MEDICARE, OTHER, SELFPAY ==
--- NOTE | 2025-08-11 08:10 | EST_ITS ---
Patient Info Name: Michael Chawla Age: 74 years : 1950 Gender: Male Ht: 71 in Wt: 184 lbs BSA: 2.05 m2 HR: 67 bpm BP: 128 / 64 mmHg Heart Rhythm: Sinus Rhythm Technical Quality: Good Exam Date: 08/11/2025 8:10 AM Patient Status: O Admit Date: 08/11/2025 Exam Type: CA stress maris w NM A regadenoson stress test was performed. Staff Referring Physician: Anthony Schmid DO Attending Provider: Anthony Schmid DO Summary 1. 1. Negative lexiscan stress test for ischemic ST changes by ECG criteria. 2. 2. Stable hemodynamics throughout the test. 3. 3. Nuclear scan to follow and will be reported separately. Please correlate with it. History/Risk Factors Hypertension: Yes Protocol: LEXISCAN Stress ECG Details Stage: REST Duration (min): 1 min : 13 sec HR (bpm): 65 SBP (mmHg): 128 DBP (mmHg): 64 Stage: REST Duration (min): 4 min : 39 sec HR (bpm): 63 SBP (mmHg): 128 DBP (mmHg): 64 Stage: STAGE 1 Duration (min): 1 min : 0 sec HR (bpm): 79 SBP (mmHg): 128 DBP (mmHg): 64 Stage: STAGE 1 Duration (min): 1 min : 48 sec HR (bpm): 93 SBP (mmHg): 119 DBP (mmHg): 55 Stage: RECOVERY Duration (min): 0 min : 11 sec HR (bpm): 92 SBP (mmHg): 119 DBP (mmHg): 55 Stage: RECOVERY Duration (min): 1 min : 11 sec HR (bpm): 82 SBP (mmHg): 119 DBP (mmHg): 55 Stage: RECOVERY Duration (min): 2 min : 11 sec HR (bpm): 74 SBP (mmHg): 124 DBP (mmHg): 57 Stage: RECOVERY Duration (min): 3 min : 11 sec HR (bpm): 77 SBP (mmHg): 120 DBP (mmHg): 58 Stage: RECOVERY Duration (min): 4 min : 11 sec HR (bpm): 77 SBP (mmHg): 120 DBP (mmHg): 58 Stage: RECOVERY Duration (min): 5 min : 11 sec HR (bpm): 76 SBP (mmHg): 128 DBP (mmHg): 61 Stage: RECOVERY Duration (min): 6 min : 11 sec HR (bpm): 75 SBP (mmHg): 123 DBP (mmHg): 61 Stage: RECOVERY Duration (min): 6 min : 21 sec HR (bpm): 76 SBP (mmHg): 123 DBP (mmHg): 61 Rest HR: 63 bpm Peak HR: 93 bpm Rest Sys BP: 128 mmHg Peak Sys BP: 128 mmHg Max Pred HR: 146 bpm % Max Pred HR: 64 % Target HR: 124 bpm Max RPP: 11,904 bpm*mmHg BP Response: Normal blood pressure response Termination Reason: Completed Protocol Cardiac Symptoms: None Total Time: 1 min : 48 sec Rest Stout BP: 64 mmHg Peak Stout BP: 61 mmHg Total Dose: 0.4 mg Resting ECG Normal sinus rhythm. Stress ECG No abnormal ST/T wave changes. Arrhythmias Occasional PACs. Report Signatures
--- OUTSIDE RECORDS SUMMARY | 2025-08-11 08:16 | XMS_ITS | Clinical Summary ---
Author Organization [facility] Address [address] [place] [address] Care Team Providers Care Watch Crystal Cutter Name Role Phone Rl Tee MD Primary Care Provider [phone] Rosmery Grant [employer] [place] [address] Unavailable [phone] Michael Gerardo MD Unavailable [phone] Allergies Active Allergy Reactions Criticality Noted Date Comments Diclofenac Potassium(Migraine) Hives 07/24 Sulfa Antibiotics Unknown 07/24/2018 Medications aspirin EC (ASPIRIN) 81 MG EC tablet Take 81 mg by mouth daily. Active Active Problems Problem Noted Date Diagnosed Date Atherosclerosis of aorta 07/27/2018 Chronic hepatitis ([facility]) 07/27/2018 Depression 07/27/2018 Chest pain 07/27/2018 Family [...] COVID-19 Vaccine ( - 2023-2 5 season) 2025 Meningococcal B Vaccine Aged Out No l onger eligible based on patient's age to complete this topic Meningococcal Vaccine Aged Out No dmitriy vinicio eligible based on patient's age to complete this topic RSV Immunizations Under 20 Months Aged Out No longer eligible based on patient's age to complete this topic Insurance MEDICARE [employer] Care Teams Watch Crystal Cutter Relationship Specialty Start Date End Date Rl Tee MD [address] [place] [address] PCP - General FAMILY PRACTICE 07/24/18 Rosmery Grant FNP [address] [place] [address] NURSE PRACTITIONER 07/24/18 Michael Gerardo MD [address] [place] [address] [employer] Software Consultant CARDIOVASCULAR DISEASE 07/24/18
--- NOTE | 2025-08-11 12:58 | WPDCARIOSTRE ---
Nuclear Stress Test INDICATIONS Indications: Dyspnea PROCEDURE Procedure Performed: Myocardial Perf Spect-Multi Procedure: Patient underwent a lexiscan stress test and immediately was injected with 31.5 mCi of cardiolyte. Multiple tomographic images were obtained. These are of good quality. No perfusion defects with stress imaging. A separate resting images were obtained after patient was injected with 10.3 mCi of cardiolyte. Multiple tomographic images were obtained. These are of good quality. No perfusion defects with rest imaging. CONCLUSION Conclusion: 1. Normal myocardial perfusion imaging demonstrating no perfusion defects with stress or rest imaging. 2. No evidence of reversible ischemia. 3. Left ventriculogram demonstrates normal measure ejection fraction of 78% with no wall motion abnormalities. 4. TID score 1.06 is not elevated.
== END 2025-08-11 08:06 | disposition home or self-care (01) ==
PROVIDERS: PCP Nurse Practitioner Family; Visit Provider Internal Medicine Cardiovascular Disease
DX: R06.09 Other forms of dyspnea (principal)
CPT/HCPCS: 78452; 93017; A9502; J2785